=== PATIENT | female | born 1945 | race Caucasian/White ===

== ENCOUNTER 2018-08-06 01:25 | Inpatient (IN) | payer BC, MEDICARE ==
[~2018-08-06] VITALS: Ht 162.6 cm; Wt 69.9 kg
[2018-08-06 01:48] VITALS: BP 146/87
[2018-08-06] MEDS ORDERED: MAG HYDROX/AL HYDROX/SIMETH 30 ML ORAL.SUSP PO PRN (02:15)
[2018-08-06] MEDS ORDERED: MAGNESIUM HYDROXIDE 2,400 MG/30 ML ORAL.SUSP. PO PRN (02:15)
[2018-08-06 06:05] VITALS: BP 123/65
[2018-08-06 06:48] LABS: BASO % 0 % (0-3); EOS # 0.1 x10^3/uL (0.0-0.7); EOS % 3 % (0-3); HEMATOCRIT 41.2 % (36.0-47.0); HEMOGLOBIN 14.1 g/dL (12.0-15.5); LYMPH # 1.4 x10^3/uL (1.0-4.8); LYMPH % 33 % (24-48); MEAN CORPUSCULAR HEMOGLOBIN 33 pg (25-35); MEAN CORPUSCULAR HGB CONC 34 g/dL (31-37); MEAN CORPUSCULAR VOLUME 95 fL (79-100); MONO # 0.4 x10^3/uL (0.0-1.1); MONO % 10 % (0-9); NEUT # 2.3 x10^3uL (1.8-7.7); NEUT % 54 % (31-73); PLATELET COUNT 265 x10^3/uL (140-400); RED BLOOD COUNT 4.32 x10^6/uL (3.50-5.40); RED CELL DISTRIBUTION WIDTH 12.3 % (11.5-14.5); WHITE BLOOD COUNT 4.2 x10^3/uL (4.0-11.0)
[2018-08-06 06:57] LABS: ALBUMIN 3.3 g/dL (3.4-5.0); ALBUMIN/GLOBULIN RATIO 1.1 (1.0-1.7); CALCIUM 9.2 mg/dL (8.5-10.1); CREATININE 0.7 mg/dL (0.6-1.0); GFR 82.7; MAGNESIUM 2.2 mg/dL (1.8-2.4); POTASSIUM 3.6 mmol/L (3.5-5.1); TOTAL BILIRUBIN 0.3 mg/dL (0.2-1.0); TOTAL PROTEIN 6.4 g/dL (6.4-8.2)
[2018-08-06 07:07] LABS: BACTERIA,URINE FEW /HPF (0-FEW); BILIRUBIN,URINE NEG (NEG); CLARITY,URINE CLEAR; COLOR,URINE YELLOW; GLUCOSE,URINE NEG (NEG); NITRITE,URINE NEG (NEG); RBC,URINE 0 /HPF (0-2); SQUAMOUS EPITHELIAL CELL,UR OCC /LPF; UROBILINOGEN,URINE 0.2 mg/dL (0.2 mg/dL); WBC,URINE OCC /HPF (0-4)
[2018-08-06] MEDS ORDERED: CHOL100013 PO (09:45)
[2018-08-06] MEDS ORDERED: ALBUTEROL SULFATE 8GM INHALER. INH PRN (09:45)
[2018-08-06] MEDS ORDERED: ALBU8.5H8 INH (09:45)
[2018-08-06] MEDS ORDERED: ACET325T9 PO (09:45)
[2018-08-06] MEDS ORDERED: CLON0.5T11 PO (09:45)
[2018-08-06] MEDS ORDERED: QUET25TA5 PO (09:45)
[2018-08-06] MEDS ORDERED: MULT-697 PO (09:45)
[2018-08-06] MEDS ORDERED: LISI1TAB5 PO (09:45)
[2018-08-06] MEDS ORDERED: MELA3TAB2 PO (09:45)
[2018-08-06] MEDS: QUEtiapine 25 MG TABLET. PO SCH ×2 (10:00→20:45)
[2018-08-06] MEDS: hydroCHLOROthiazide 12.5 MG CAPSULE PO SCH (10:03)
[2018-08-06] MEDS: LISINOPRIL 20 MG TABLET PO SCH (10:04)
[2018-08-06] MEDS ORDERED: ALBUTEROL SULFATE 2.5 MG/3 ML NEBU. NEB PRN (11:00)
[2018-08-06 12:48] LABS: THYROID STIM HORMONE (TSH) 1.693 uIU/mL (0.358-3.740)
[2018-08-06] MEDS: clonazePAM 0.5 MG TABLET PO PRN (12:50)
--- NOTE | 2018-08-06 17:36 | RAD ---
EXAM: Head CT without contrast. HISTORY: Altered mental status. TECHNIQUE: Computed tomographic images of the head were obtained without contrast. *One or more of the following individualized dose reduction techniques were utilized for this examination: 1. Automated exposure control. 2. Adjustment of the mA and/or kV according to patient size. 3. Use of iterative reconstruction technique. COMPARISON: None. FINDINGS: There is no acute or subacute extra-axial or intraparenchymal hemorrhage. There is no mass effect or midline shift. There is no hydrocephalus. There are areas of decreased attenuation within the cerebral white matter, nonspecific and likely related to chronic small vessel disease. There is cerebral atrophy with compensatory enlargement of the ventricles. There is asymmetric dilatation of the occipital horn of the right lateral ventricle. The visualized portions of the orbits, paranasal sinuses and mastoid air cells are unremarkable. No suspicious calvarial lesion is seen. IMPRESSION: 1. No acute intracranial finding. Note is made that MRI is more sensitive for acute infarction. 2. Subtle areas of hypodensity within the cerebral white matter, likely due to chronic small vessel disease. Electronically signed by: Theresa Solis MD (08/06/2018 5:33 PM) [facility]
[2018-08-06 18:07] LABS: THYROXINE 6.5 ug/dL (4.5-12.0)
[2018-08-06 20:09] LABS: HEMOGLOBIN A1C 5.6 % (4.8-5.6)
[2018-08-06] MEDS: ACETAMINOPHEN 325 MG TABLET PO SCH (20:46)
[2018-08-06] MEDS: MELATONIN 3 MG TABLET PO SCH (20:46)
--- NOTE | 2018-08-06 22:52 | PDOC ---
Exam Note: Miah Note: Late entry for DOS 08/05/2018. Please also refer to the separate dictated note~ for this date of service dictated separately.~Discussed the patient with Nursing staff reviewed the chart.~Reviewed interim history and current functioning. Reviewed vital signs,~Labs/ Radiology~and current medications noted below. Continue current treatment with the changes noted in the dictated addendum note Assessment: Vital Signs: VS - Last 72 Hours, by Label Date Time Temp Pulse Resp B/P (MAP) Pulse Ox O2 Delivery O2 Flow Rate FiO2 08/06/18 10:04 61 123/65 08/06/18 06:05 96.5 61 16 123/65 (84) 99 08/06/18 01:48 97.5 76 18 146/87 (106) 96 Vital Signs Date Time Temp Pulse Resp B/P (MAP) Pulse Ox O2 Delivery O2 Flow Rate FiO2 08/06/18 10:04 61 123/65 08/06/18 06:05 96.5 16 99 Labs: Laboratory Tests Test 08/06/18 06:35 08/06/18 06:46 White Blood Count 4.2 x10^3/uL (4.0-11.0) Red Blood Count 4.32 x10^6/uL (3.50-5.40) Hemoglobin 14.1 g/dL (12.0-15.5) Hematocrit 41.2 % (36.0-47.0) Mean Corpuscular Volume 95 fL (79-100) Mean Corpuscular Hemoglobin 33 pg (25-35) Mean Corpuscular Hemoglobin Concent 34 g/dL (31-37) Red Cell Distribution Width 12.3 % (11.5-14.5) Platelet Count 265 x10^3/uL (140-400) Neutrophils (%) (Auto) 54 % (31-73) Lymphocytes (%) (Auto) 33 % (24-48) Monocytes (%) (Auto) 10 % (0-9) H Eosinophils (%) (Auto) 3 % (0-3) Basophils (%) (Auto) 0 % (0-3) Neutrophils # (Auto) 2.3 x10^3uL (1.8-7.7) Lymphocytes # (Auto) 1.4 x10^3/uL (1.0-4.8) Monocytes # (Auto) 0.4 x10^3/uL (0.0-1.1) Eosinophils # (Auto) 0.1 x10^3/uL (0.0-0.7) Basophils # (Auto) 0.0 x10^3/uL (0.0-0.2) Sodium Level 138 mmol/L (136-145) Potassium Level 3.6 mmol/L (3.5-5.1) Chloride Level 104 mmol/L (98-107) Carbon Dioxide Level 27 mmol/L (21-32) Anion Gap 7 (6-14) Blood Urea Nitrogen 19 mg/dL (7-20) Creatinine 0.7 mg/dL (0.6-1.0) Estimated GFR (Cockcroft-Gault) 82.7 BUN/Creatinine Ratio 27 (6-20) H Glucose Level 99 mg/dL (70-99) Hemoglobin A1c 5.6 % (4.8-5.6) Calcium Level 9.2 mg/dL (8.5-10.1) Magnesium Level 2.2 mg/dL (1.8-2.4) Iron Level 57 ug/dL (50-170) Total Iron Binding Capacity 255 ug/dL (250-450) Iron Saturation 22 % (15-34) Total Bilirubin 0.3 mg/dL (0.2-1.0) Aspartate Amino Transferase (AST) 19 U/L (15-37) Alanine Aminotransferase (ALT) 39 U/L (14-59) Alkaline Phosphatase 73 U/L (46-116) Total Protein 6.4 g/dL (6.4-8.2) Albumin 3.3 g/dL (3.4-5.0) L Albumin/Globulin Ratio 1.1 (1.0-1.7) Triglycerides Level 64 mg/dL (0-150) Cholesterol Level 179 mg/dL (0-200) LDL Cholesterol, Calculated 113 mg/dL (0-100) H VLDL Cholesterol, Calculated 12 mg/dL (0-40) Non-HDL Cholesterol Calculated 125 mg/dL (0-129) HDL Cholesterol 54 mg/dL (40-60) Cholesterol/HDL Ratio 3.0 Vitamin B12 Level 778 pg/mL (247-911) 25-Hydroxy Vitamin D Total 49.2 ng/mL (30-100) Thyroid Stimulating Hormone (TSH) 1.693 uIU/mL (0.358-3.740) Thyroxine (T4) 6.5 ug/dL (4.5-12.0) Total Triiodothyronine (TT3) 115 ng/dL (71-180) Treponema pallidum Antibody Nonreactive (Nonreactive) Urine Collection Type Unknown Urine Color Yellow Urine Clarity Clear Urine pH 6.0 Urine Specific [place] 1.010 Urine Protein Neg (NEG-TRACE) Urine Glucose (UA) Neg mg/dL (NEG) Urine Ketones (Stick) Neg mg/dL (NEG) Urine Blood Neg (NEG) Urine Nitrite Neg (NEG) Urine Bilirubin Neg (NEG) Urine Urobilinogen Dipstick 0.2 mg/dL (0.2 mg/dL) Urine Leukocyte Esterase Neg (NEG) Urine RBC 0 /HPF (0-2) Urine WBC Occ /HPF (0-4) Urine Squamous Epithelial Cells Occ /LPF Urine Bacteria Few /HPF (0-FEW) Current Medications: Meds: Current Medications Acetaminophen (Tylenol) 650 mg PRN Q6HRS PRN PO PAIN / TEMP; Start 08/06/18 at 02:15 Multi-Ingredient Ointment (Analgesic [place]) 1 yessenia PRN QID PRN TP MUSCLE PAIN; Start 08/06/18 at 02:15 Al Hydroxide/Mg Hydroxide (Mylanta Plus Xs) 15 ml PRN AFTMEALHC PRN PO DYSPEPSIA; Start 08/06/18 at 02:15 Magnesium Hydroxide (Milk Of Magnesia) 2,400 mg PRN QHS PRN PO CONSTIPATION; Start 08/06/18 at 02:15 Albuterol Sulfate (Ventolin Hfa Inhaler) 2 puff PRN Q4HRS PRN INH SHORTNESS OF BREATH; Start 08/06/18 at 09:45; Stop 08/06/18 at 11:04; Status DC Clonazepam (KlonoPIN) 0.25 mg PRN DAILY PRN PO ANXIETY Last administered on 08/06/18at 12:50; Start 08/06/18 at 09:45 Vitamin D (Vitamin D3) 1,000 unit DAILY PO ; Start 08/07/18 at 09:00 Lisinopril (Prinivil) 20 mg DAILY PO Last administered on 08/06/18at 10:04; Start 08/06/18 at 10:00 Melatonin 9 mg QHS PO Last administered on 08/06/18at 20:46; Start 08/06/18 at 21:00 Multivitamins/ Calcium (Thera-M Plus) 1 tab DAILY PO ; Start 08/07/18 at 09:00 Quetiapine Fumarate (SEROquel) 25 mg QHS PO Last administered on 08/06/18at 20: 45; Start 08/06/18 at 10:00 Acetaminophen (Tylenol) 500 mg BID PO Last administered on 08/06/18at 20:46; Start 08/06/18 at 21:00 Hydrochlorothiazide (Microzide) 12.5 mg DAILY PO Last administered on at 10:03; Start 08/06/18 at 10:00 Albuterol Sulfate (Ventolin) 2.5 mg PRN Q4HRS PRN NEB SHORTNESS OF BREATH; Start 08/06/18 at 11:00 Olanzapine (ZyPREXA ZYDIS) 2.5 mg PRN Q2HR PRN PO PSYCHOSIS; Start 08/06/18 at 19:30 Active Scripts Active Reported Centrum Adults Tablet (Multivitamin/Iron/Folic Acid) 1 Each Tablet 1 Each PO DAILY Vitamin D (Cholecalciferol (Vitamin D3)) 1,000 Unit Capsule 1,000 Unit PO DAILY Proair Hfa Inhaler (Albuterol Sulfate) 8.5 Gm Hfa.aer.ad 2 Puff INH PRN Q4HRS PRN Tylenol (Acetaminophen) 325 Mg Tablet 500 Mg PO BID Clonazepam 0.5 Mg Tablet 0.25 Mg PO PRN DAILY PRN Melatonin 3 Mg Tablet 10 Mg PO QHS Seroquel (Quetiapine Fumarate) 25 Mg Tablet 25 Mg PO QHS Lisinopril-Hctz 20-12.5 Mg Tab (Lisinopril/Hydrochlorothiazide) 1 Each Tablet 1 Tab PO DAILY I have reviewed the current psychotropics carefully including drug interactions. Risk benefit ratio favors no change other than as noted in my dictated progress note. JERMAINE MELENDEZ MD Aug 06, 2018 22:52
--- NOTE | 2018-08-06 23:20 | PDOC ---
Exam Note: Miah Note: Please also refer to the separate dictated note~for this date of service dictated separately.~Patient seen individually. Discussed the patient with Nursing staff reviewed the chart.~Reviewed interim history and current functioning. Reviewed vital signs,~Labs/ Radiology~and current medications noted below. Continue current treatment with the changes noted in the dictated addendum note Assessment: Vital Signs: Vital Signs Date Time Temp Pulse Resp B/P (MAP) Pulse Ox O2 Delivery O2 Flow Rate FiO2 08/06/18 21:00 96.5 08/06/18 10:04 61 123/65 08/06/18 06:05 16 99 Labs: Laboratory Tests Test 08/06/18 06:35 08/06/18 06:46 White Blood Count 4.2 x10^3/uL (4.0-11.0) Red Blood Count 4.32 x10^6/uL (3.50-5.40) Hemoglobin 14.1 g/dL (12.0-15.5) Hematocrit 41.2 % (36.0-47.0) Mean Corpuscular Volume 95 fL (79-100) Mean Corpuscular Hemoglobin 33 pg (25-35) Mean Corpuscular Hemoglobin Concent 34 g/dL (31-37) Red Cell Distribution Width 12.3 % (11.5-14.5) Platelet Count 265 x10^3/uL (140-400) Neutrophils (%) (Auto) 54 % (31-73) Lymphocytes (%) (Auto) 33 % (24-48) Monocytes (%) (Auto) 10 % (0-9) H Eosinophils (%) (Auto) 3 % (0-3) Basophils (%) (Auto) 0 % (0-3) Neutrophils # (Auto) 2.3 x10^3uL (1.8-7.7) Lymphocytes # (Auto) 1.4 x10^3/uL (1.0-4.8) Monocytes # (Auto) 0.4 x10^3/uL (0.0-1.1) Eosinophils # (Auto) 0.1 x10^3/uL (0.0-0.7) Basophils # (Auto) 0.0 x10^3/uL (0.0-0.2) Sodium Level 138 mmol/L (136-145) Potassium Level 3.6 mmol/L (3.5-5.1) Chloride Level 104 mmol/L (98-107) Carbon Dioxide Level 27 mmol/L (21-32) Anion Gap 7 (6-14) Blood Urea Nitrogen 19 mg/dL (7-20) Creatinine 0.7 mg/dL (0.6-1.0) Estimated GFR (Cockcroft-Gault) 82.7 BUN/Creatinine Ratio 27 (6-20) H Glucose Level 99 mg/dL (70-99) Hemoglobin A1c 5.6 % (4.8-5.6) Calcium Level 9.2 mg/dL (8.5-10.1) Magnesium Level 2.2 mg/dL (1.8-2.4) Iron Level 57 ug/dL (50-170) Total Iron Binding Capacity 255 ug/dL (250-450) Iron Saturation 22 % (15-34) Total Bilirubin 0.3 mg/dL (0.2-1.0) Aspartate Amino Transferase (AST) 19 U/L (15-37) Alanine Aminotransferase (ALT) 39 U/L (14-59) Alkaline Phosphatase 73 U/L (46-116) Total Protein 6.4 g/dL (6.4-8.2) Albumin 3.3 g/dL (3.4-5.0) L Albumin/Globulin Ratio 1.1 (1.0-1.7) Triglycerides Level 64 mg/dL (0-150) Cholesterol Level 179 mg/dL (0-200) LDL Cholesterol, Calculated 113 mg/dL (0-100) H VLDL Cholesterol, Calculated 12 mg/dL (0-40) Non-HDL Cholesterol Calculated 125 mg/dL (0-129) HDL Cholesterol 54 mg/dL (40-60) Cholesterol/HDL Ratio 3.0 Vitamin B12 Level 778 pg/mL (247-911) 25-Hydroxy Vitamin D Total 49.2 ng/mL (30-100) Thyroid Stimulating Hormone (TSH) 1.693 uIU/mL (0.358-3.740) Thyroxine (T4) 6.5 ug/dL (4.5-12.0) Total Triiodothyronine (TT3) 115 ng/dL (71-180) Treponema pallidum Antibody Nonreactive (Nonreactive) Urine Collection Type Unknown Urine Color Yellow Urine Clarity Clear Urine pH 6.0 Urine Specific [place] 1.010 Urine Protein Neg (NEG-TRACE) Urine Glucose (UA) Neg mg/dL (NEG) Urine Ketones (Stick) Neg mg/dL (NEG) Urine Blood Neg (NEG) Urine Nitrite Neg (NEG) Urine Bilirubin Neg (NEG) Urine Urobilinogen Dipstick 0.2 mg/dL (0.2 mg/dL) Urine Leukocyte Esterase Neg (NEG) Urine RBC 0 /HPF (0-2) Urine WBC Occ /HPF (0-4) Urine Squamous Epithelial Cells Occ /LPF Urine Bacteria Few /HPF (0-FEW) Current Medications: Meds: Current Medications Acetaminophen (Tylenol) 650 mg PRN Q6HRS PRN PO PAIN / TEMP; Start 08/06/18 at 02:15 Multi-Ingredient Ointment (Analgesic [place]) 1 yessenia PRN QID PRN TP MUSCLE PAIN; Start 08/06/18 at 02:15 Al Hydroxide/Mg Hydroxide (Mylanta Plus Xs) 15 ml PRN AFTMEALHC PRN PO DYSPEPSIA; Start 08/06/18 at 02:15 Magnesium Hydroxide (Milk Of Magnesia) 2,400 mg PRN QHS PRN PO CONSTIPATION; Start 08/06/18 at 02:15 Albuterol Sulfate (Ventolin Hfa Inhaler) 2 puff PRN Q4HRS PRN INH SHORTNESS OF BREATH; Start 08/06/18 at 09:45; Stop 08/06/18 at 11:04; Status DC Clonazepam (KlonoPIN) 0.25 mg PRN DAILY PRN PO ANXIETY Last administered on 08/06/18at 12:50; Start 08/06/18 at 09:45 Vitamin D (Vitamin D3) 1,000 unit DAILY PO ; Start 08/07/18 at 09:00 Lisinopril (Prinivil) 20 mg DAILY PO Last administered on 08/06/18at 10:04; Start 08/06/18 at 10:00 Melatonin 9 mg QHS PO Last administered on 08/06/18at 20:46; Start 08/06/18 at 21:00 Multivitamins/ Calcium (Thera-M Plus) 1 tab DAILY PO ; Start 08/07/18 at 09:00 Quetiapine Fumarate (SEROquel) 25 mg QHS PO Last administered on 08/06/18at 20: 45; Start 08/06/18 at 10:00 Acetaminophen (Tylenol) 500 mg BID PO Last administered on 08/06/18at 20:46; Start 08/06/18 at 21:00 Hydrochlorothiazide (Microzide) 12.5 mg DAILY PO Last administered on at 10:03; Start 08/06/18 at 10:00 Albuterol Sulfate (Ventolin) 2.5 mg PRN Q4HRS PRN NEB SHORTNESS OF BREATH; Start 08/06/18 at 11:00 Olanzapine (ZyPREXA ZYDIS) 2.5 mg PRN Q2HR PRN PO PSYCHOSIS; Start 08/06/18 at 19:30 Active Scripts Active Reported Centrum Adults Tablet (Multivitamin/Iron/Folic Acid) 1 Each Tablet 1 Each PO DAILY Vitamin D (Cholecalciferol (Vitamin D3)) 1,000 Unit Capsule 1,000 Unit PO DAILY Proair Hfa Inhaler (Albuterol Sulfate) 8.5 Gm Hfa.aer.ad 2 Puff INH PRN Q4HRS PRN Tylenol (Acetaminophen) 325 Mg Tablet 500 Mg PO BID Clonazepam 0.5 Mg Tablet 0.25 Mg PO PRN DAILY PRN Melatonin 3 Mg Tablet 10 Mg PO QHS Seroquel (Quetiapine Fumarate) 25 Mg Tablet 25 Mg PO QHS Lisinopril-Hctz 20-12.5 Mg Tab (Lisinopril/Hydrochlorothiazide) 1 Each Tablet 1 Tab PO DAILY I have reviewed the current psychotropics carefully including drug interactions. Risk benefit ratio favors no change other than as noted in my dictated progress note. JERMAINE MELENDEZ MD Aug 06, 2018 23:20
[2018-08-07 05:59] VITALS: BP 144/84
--- NOTE | 2018-08-07 08:04 | HP ---
ADMIT DATE: 08/06/2018 PSYCHIATRIC ADMISSION HISTORY/EVALUATION This late entry 08/06/2018 covers element, not covered in my initial note. I met with the patient at length in the evening of 08/06/2018. Discussed with nursing staff several times and with Antoinette Martin recreation program coordinator on 2 or 3 separate occasions. IDENTIFYING DATA: The patient is a 72-year-old female referred to us from [facility] Room where she presented with her family on account of "manic behaviors and psychosis." The patient had been labile, tearful, anxious, paranoid, distractible. She has failed outpatient psychiatric interventions with Dr. Moise Gallagher her primary care physician. We also reviewed extensive records approximately 80 pages or perhaps more received from her outpatient providers with a diagnosis from a psychiatric standpoint of anxiety, depression, ADHD, and some memory deficits, even though she is reasonably oriented. CHIEF COMPLAINT: "I have panic attacks. My mind keeps racing. I cannot stay still ____ less moved. Can be sit down." The patient has rapid speech, extremely distractible, anxious, disorganized, but otherwise pleasant. She is quite paranoid. HISTORY OF PRESENT ILLNESS: The patient has a long history of treatment for depression, panic attacks, anxiety, ADHD, but on close review of her history, she appears to have history of mood swings with periods of elation, racing thoughts alternating with getting depressed. She has had sleep and appetite changes. The patient attributes much of her problems to having anesthesia for surgery for her back and states the morphine made her extremely agitated. No active suicidal or homicidal ideation. The patient states she is extremely obsessive, perfectionistic, but then adds that the whole house is very disorganized. PAST PSYCHIATRIC HISTORY: Review of the records indicates she is being treated at different times for all of the above psychiatric disorders, but never specifically for what appears to be bipolar disorder. PAST MEDICAL HISTORY: COPD, chronic venous insufficiency, hypertension, hyponatremia, lumbar stenosis with neurogenic claudication, postmenopausal hormone replacement, OCD, osteoarthritis to left knee, chronic pain, hypercholesterolemia, spinal stenosis, spondylolisthesis, asthma, vitamin D deficiency. DRUG ALLERGIES: Negative other than adverse reaction to MORPHINE. FAMILY HISTORY: Noncontributory. SOCIAL HISTORY: No history of alcohol, drug abuse, physical, sexual, or elder abuse. She is not known to be a perpetrator. REACTION TO HOSPITALIZATION: The patient reluctantly is accepting of this. ASSETS: Supportive family. MENTAL STATUS EXAMINATION: The patient was seen individually at length the evening of 08/06/2018. She is oriented to herself, situation, aware of the date, year, month accurately. She knew who the president was, able to do two steps on serial sevens. Somewhat distractible, hyperverbal, anxious. No active suicidal or homicidal ideation. IMPRESSION: Bipolar 1 disorder, manic versus mixed with psychotic features; anxiety disorder, unspecified; impulse control disorder, unspecified; cognitive disorder, unspecified. Rest diagnoses as noted above. PLAN: Admit to Geropsychiatry Unit at [facility]. I will see the patient daily individually from a psychiatric standpoint, medical followup with Dr. Alcantara/Dr. Marin. CT head has been completed at my request. No acute changes, subtle areas of hypodensity within the cerebral white matter, chronic small vessel disease, otherwise unremarkable. The patient is currently on Klonopin 0.25 mg daily p.r.n., melatonin 9 mg at bedtime, Seroquel 25 mg at bedtime. We will go ahead and add Zyprexa p.r.n. and started on Depakote ER 500 mg a day. Check CBC, CMP, valproic acid level in 3 days. Change the Seroquel to Risperdal 0.25 mg daily. We will make further adjustments as clinically indicated. The patient has had a past neuropsychological testing by Dr. Sullivan which indicated some mild level of Alzheimer's dementia and major depressive disorder. Certainly on review of her entire history, past response to treatment, and from the information I have received at this time it appears she more than likely has a diagnosis of undiagnosed bipolar disorder as noted above. MAN Edward MELENDEZ MD DR: ROSALIE/regan JOB#: [id number] / [id number]
[2018-08-07] MEDS: hydroCHLOROthiazide 12.5 MG CAPSULE PO SCH (08:07)
[2018-08-07] MEDS: LISINOPRIL 20 MG TABLET PO SCH (08:07)
[2018-08-07] MEDS: ACETAMINOPHEN 325 MG TABLET PO SCH ×2 (08:08→19:34)
[2018-08-07] MEDS: CHOLECALCIFEROL (VITAMIN D3) 1,000 UNIT TABLET PO SCH (08:11)
[2018-08-07] MEDS: DIVALPROEX ER 500 MG TAB.ER.24H PO SCH ×2 (08:12→08:13)
[2018-08-07] MEDS: MULTIVITAMIN with MINERAL TABLET. PO SCH (08:12)
[2018-08-07] MEDS ORDERED: risperiDONE 0.25 MG TABLET. PO SCH (09:00)
[2018-08-07] MEDS: METHYL SALICYLATE/MENTHOL TOPICAL OINTMENT 29GM TUBE. TP PRN (14:33)
[2018-08-07 16:03] VITALS: BP 119/82
[2018-08-07] MEDS: MELATONIN 3 MG TABLET PO SCH (19:35)
--- NOTE | 2018-08-07 20:47 | PDOC2 ---
CONSULT Date of Admission DATE: 08/07/18 TIME: 20:46 Reason for Consult: Medical Management Referring Physician: Dr Franco Chief Complaint mood disorder Source: Caregiver, Chart review, Patient History of Present Illness: 72/F referred to [facility] unit for admission by social worker health services at [facility] ED after having been taken there for evaluation by her for psychiatric evaluation. Records indicate patient has been emotionally labile and paranoid, very anxious and obviously manic. Symptoms have been worsening since late June, patient has reportedly undergone neuropsychiatric testing and pharmacologic therapies as outpatient which have been unsuccessful. I evaluated her assisted by [facility] RN, and the patient exhibited very pressured speech with tangential thoughts and hypochondriasis. Patient complains of sore throat described as mild with no associated symptoms since March. Requests lidocaine patch for her chronic back pain. She feels that she's been inactive recently and her joints are stiff, she feels a physical therapy evaluation would benefit her. She wants constant throat lozenges. Many other somatic complaints, none of which involve ESPARZA/fever/CP/SOB/n/v/d/focal neurodeficit. Her vitals have been stable, labs unremarkable aside from slightly subtherapeutic valproic acid level at 45. She is ambulatory with antalgic gait in no apparent distress. Cardiovascular: HTN Psych: Anxiety Musculoskeletal: low back pain (Chronic) Past Surgical History lumbar "back surgeries" Smoke: No ALCOHOL: none Drugs: None Lives: with Family Domestic Violence: Neg Current Medications Current Medications Acetaminophen (Tylenol) 650 mg PRN Q6HRS PRN PO PAIN / TEMP; Start 08/06/18 at 02:15 Multi-Ingredient Ointment (Analgesic [place]) 1 yessenia PRN QID PRN TP MUSCLE PAIN Last administered on 08/07/18at 14:33; Start 08/06/18 at 02:15 Al Hydroxide/Mg Hydroxide (Mylanta Plus Xs) 15 ml PRN AFTMEALHC PRN PO DYSPEPSIA; Start 08/06/18 at 02:15 Magnesium Hydroxide (Milk Of Magnesia) 2,400 mg PRN QHS PRN PO CONSTIPATION; Start 08/06/18 at 02:15 Albuterol Sulfate (Ventolin Hfa Inhaler) 2 puff PRN Q4HRS PRN INH SHORTNESS OF BREATH; Start 08/06/18 at 09:45; Stop 08/06/18 at 11:04; Status DC Clonazepam (KlonoPIN) 0.25 mg PRN DAILY PRN PO ANXIETY Last administered on 12:50; Start 08/06/18 at 09:45 Vitamin D (Vitamin D3) 1,000 unit DAILY PO Last administered on 08/07/18 08:11 ; Start 08/07/18 at 09:00 Lisinopril (Prinivil) 20 mg DAILY PO Last administered on 08/07/18 08:07; Start 08/06/18 at 10:00 Melatonin 9 mg QHS PO Last administered on 08/07/18 19:35; Start 08/06/18 at 21:00 Multivitamins/ Calcium (Thera-M Plus) 1 tab DAILY PO Last administered on 08:12; Start 08/07/18 at 09:00 Quetiapine Fumarate (SEROquel) 25 mg QHS PO Last administered on 08/06/18 20: 45; Start 08/06/18 at 10:00; Stop 08/07/18 at 07:23; Status DC Acetaminophen (Tylenol) 500 mg BID PO Last administered on 08/07/18 19:34; Start 08/06/18 at 21:00 Hydrochlorothiazide (Microzide) 12.5 mg DAILY PO Last administered on 08:07; Start 08/06/18 at 10:00 Albuterol Sulfate (Ventolin) 2.5 mg PRN Q4HRS PRN NEB SHORTNESS OF BREATH; Start 08/06/18 at 11:00 Olanzapine (ZyPREXA ZYDIS) 2.5 mg PRN Q2HR PRN PO PSYCHOSIS Last administered on 08/07/18 02:39; Start 08/06/18 at 19:30 Divalproex Sodium (Depakote Er) 500 mg DAILY PO Last administered on 08/07/18 08:13; Start 08/07/18 at 08:00; Stop 08/07/18 at 19:16; Status DC Risperidone (RisperDAL) 0.25 mg DAILY PO Last administered on 08/07/18 08:11; Start 08/07/18 at 09:00; Stop 08/07/18 at 19:16; Status DC Divalproex Sodium (Depakote Er) 500 mg QHS PO ; Start 08/08/18 at 21:00 Risperidone (RisperDAL) 0.25 mg QHS PO ; Start 08/08/18 at 21:00 Active Scripts Active Reported Centrum Adults Tablet (Multivitamin/Iron/Folic Acid) 1 Each Tablet 1 Each PO DAILY Vitamin D (Cholecalciferol (Vitamin D3)) 1,000 Unit Capsule 1,000 Unit PO DAILY Proair Hfa Inhaler (Albuterol Sulfate) 8.5 Gm Hfa.aer.ad 2 Puff INH PRN Q4HRS PRN Tylenol (Acetaminophen) 325 Mg Tablet 500 Mg PO BID Clonazepam 0.5 Mg Tablet 0.25 Mg PO PRN DAILY PRN Melatonin 3 Mg Tablet 10 Mg PO QHS Seroquel (Quetiapine Fumarate) 25 Mg Tablet 25 Mg PO QHS Lisinopril-Hctz 20-12.5 Mg Tab (Lisinopril/Hydrochlorothiazide) 1 Each Tablet 1 Tab PO DAILY Allergies: Coded Allergies: morphine (Verified Allergy, Intermediate, 08/08/18) Review of Systems: Constitutional: No fever or chills Eyes: No eye pain or blurred vision Skin: No rash or itching Cardiovascular: No chest pain, syncope, palpitations, dyspnea on exertion, or edema Respiratory: No cough or difficulty breathing Gastrointestinal: No nausea, vomiting, or abdominal pain Neurologic: No headaches or focal neurologic deficits Endocrine: No heat or cold intolerance Genitourinary: No incontinence or hematuria Musculoskeletal: No joint pain or swelling Lymphatics: No enlarged lymph nodes Psychiatric: No anxiety or depression Physical Exam: Gen.: Alert, pleasant, no apparent distress HEENT: Normocephalic atraumatic, PERRLA EOMI, no scleral icterus, oral mucosa pink and moist Neck: Supple, no lymphadenopathy, nontender Cardiovascular: Normal S1 and S2 no murmurs Pulmonary: Lungs are clear bilaterally with good air movement no respiratory distress Abdomen: Soft nontender non-distended, bowel sounds present no masses Extremities: No clubbing, cyanosis or edema Neuro: Alert and oriented 3, cranial nerves II through XII grossly intact, no lateralizing neuro deficits Skin: Warm, dry VITALS Vital Signs Date Time Temp Pulse Resp B/P (MAP) Pulse Ox O2 Delivery O2 Flow Rate FiO2 08/07/18 16:03 97.7 83 18 119/82 (94) 100 Room Air Labs Laboratory Tests Test 08/06/18 06:35 08/06/18 06:46 White Blood Count 4.2 x10^3/uL (4.0-11.0) Red Blood Count 4.32 x10^6/uL (3.50-5.40) Hemoglobin 14.1 g/dL (12.0-15.5) Hematocrit 41.2 % (36.0-47.0) Mean Corpuscular Volume 95 fL (79-100) Mean Corpuscular Hemoglobin 33 pg (25-35) Mean Corpuscular Hemoglobin Concent 34 g/dL (31-37) Red Cell Distribution Width 12.3 % (11.5-14.5) Platelet Count 265 x10^3/uL (140-400) Neutrophils (%) (Auto) 54 % (31-73) Lymphocytes (%) (Auto) 33 % (24-48) Monocytes (%) (Auto) 10 % (0-9) Eosinophils (%) (Auto) 3 % (0-3) Basophils (%) (Auto) 0 % (0-3) Neutrophils # (Auto) 2.3 x10^3uL (1.8-7.7) Lymphocytes # (Auto) 1.4 x10^3/uL (1.0-4.8) Monocytes # (Auto) 0.4 x10^3/uL (0.0-1.1) Eosinophils # (Auto) 0.1 x10^3/uL (0.0-0.7) Basophils # (Auto) 0.0 x10^3/uL (0.0-0.2) Sodium Level 138 mmol/L (136-145) Potassium Level 3.6 mmol/L (3.5-5.1) Chloride Level 104 mmol/L (98-107) Carbon Dioxide Level 27 mmol/L (21-32) Anion Gap 7 (6-14) Blood Urea Nitrogen 19 mg/dL (7-20) Creatinine 0.7 mg/dL (0.6-1.0) Estimated GFR (Cockcroft-Gault) 82.7 BUN/Creatinine Ratio 27 (6-20) Glucose Level 99 mg/dL (70-99) Hemoglobin A1c 5.6 % (4.8-5.6) Calcium Level 9.2 mg/dL (8.5-10.1) Magnesium Level 2.2 mg/dL (1.8-2.4) Iron Level 57 ug/dL (50-170) Total Iron Binding Capacity 255 ug/dL (250-450) Iron Saturation 22 % (15-34) Total Bilirubin 0.3 mg/dL (0.2-1.0) Aspartate Amino Transf (AST/SGOT) 19 U/L (15-37) Alanine Aminotransferase (ALT/SGPT) 39 U/L (14-59) Alkaline Phosphatase 73 U/L (46-116) Total Protein 6.4 g/dL (6.4-8.2) Albumin 3.3 g/dL (3.4-5.0) Albumin/Globulin Ratio 1.1 (1.0-1.7) Triglycerides Level 64 mg/dL (0-150) Cholesterol Level 179 mg/dL (0-200) LDL Cholesterol, Calculated 113 mg/dL (0-100) VLDL Cholesterol, Calculated 12 mg/dL (0-40) Non-HDL Cholesterol Calculated 125 mg/dL (0-129) HDL Cholesterol 54 mg/dL (40-60) Cholesterol/HDL Ratio 3.0 Vitamin B12 Level 778 pg/mL (247-911) 25-Hydroxy Vitamin D Total 49.2 ng/mL (30-100) Thyroid Stimulating Hormone (TSH) 1.693 uIU/mL (0.358-3.740) Thyroxine (T4) 6.5 ug/dL (4.5-12.0) Total Triiodothyronine 115 ng/dL (71-180) Treponema pallidum Antibody Nonreactive (Nonreactive) Urine Collection Type Unknown Urine Color Yellow Urine Clarity Clear Urine pH 6.0 Urine Specific [place] 1.010 Urine Protein Neg (NEG-TRACE) Urine Glucose (UA) Neg mg/dL (NEG) Urine Ketones (Stick) Neg mg/dL (NEG) Urine Blood Neg (NEG) Urine Nitrite Neg (NEG) Urine Bilirubin Neg (NEG) Urine Urobilinogen Dipstick 0.2 mg/dL (0.2 mg/dL) Urine Leukocyte Esterase Neg (NEG) Urine RBC 0 /HPF (0-2) Urine WBC Occ /HPF (0-4) Urine Squamous Epithelial Cells Occ /LPF Urine Bacteria Few /HPF (0-FEW) Assessment/Plan This is a 72/F patient referred for H admission from social worker health services at [facility] ED for worsening moods and behaviors very concerning to her spouse. Based upon available vitals and labs, she is currently medically stable. Due to her complaints will check rapid strep test and offer PT evaluation. As lidocaine patches have provided relief for her in the past will order for symptomatic relief. We will continue to follow and offer treatments as indicated. Thank you, Dr Franco, for allowing me to participate in your patient's care. HAO PATEL DO Aug 07, 2018 20:47
[2018-08-07] MEDS: PATCH REMOVAL. MC SCH (21:00)
[2018-08-07] MEDS ORDERED: GLYCERIN ADULT 1 SUPP.RECT. PR PRN (21:15)
[2018-08-07] MEDS ORDERED: POLYETHYLENE GLYCOL 3350 17 GM PACKET. PO PRN (21:15)
[2018-08-08] MEDS: clonazePAM 0.5 MG TABLET PO PRN (01:03)
[2018-08-08 06:22] VITALS: BP 130/78
[2018-08-08] MEDS: MULTIVITAMIN with MINERAL TABLET. PO SCH (08:37)
[2018-08-08] MEDS: CHOLECALCIFEROL (VITAMIN D3) 1,000 UNIT TABLET PO SCH (08:37)
[2018-08-08] MEDS: hydroCHLOROthiazide 12.5 MG CAPSULE PO SCH (08:37)
[2018-08-08] MEDS: ACETAMINOPHEN 325 MG TABLET PO SCH ×2 (08:37→19:37)
[2018-08-08] MEDS: LISINOPRIL 20 MG TABLET PO SCH (08:37)
[2018-08-08] MEDS: LIDOCAINE (700MG/PATCH) PATCH. TD SCH (08:41)
[2018-08-08 16:03] VITALS: BP 125/92
[2018-08-08] MEDS ORDERED: traZODone 50 MG TABLET. PO PRN (16:45)
[2018-08-08] MEDS: DIVALPROEX ER 500 MG TAB.ER.24H PO SCH ×2 (19:08→19:38)
[2018-08-08] MEDS: risperiDONE 0.5 MG TABLET. PO SCH ×2 (19:08→19:38)
[2018-08-08] MEDS: DOCUSATE SODIUM 100 MG CAPSULE PO SCH ×2 (19:10→19:38)
[2018-08-08] MEDS: PATCH REMOVAL. MC SCH (19:36)
[2018-08-08] MEDS: MELATONIN 3 MG TABLET PO SCH (19:37)
[2018-08-08] MEDS: traZODone 50 MG TABLET. PO SCH (19:39)
--- NOTE | 2018-08-08 19:52 | PDOC ---
Exam Note: Miah Note: Late entry for date of service August 07, 2018. Please also refer to the separate dictated note~for this date of service dictated separately.~Patient seen individually. Discussed the patient with Nursing staff reviewed the chart.~ Reviewed interim history and current functioning. Reviewed vital signs,~Labs/ Radiology~and current medications noted below. Continue current treatment with the changes noted in the dictated addendum note Assessment: Vital Signs: VS - Last 72 Hours, by Label Date Time Temp Pulse Resp B/P (MAP) Pulse Ox O2 Delivery O2 Flow Rate FiO2 08/08/18 16:03 97.5 90 22 125/92 (103) 99 Room Air 08/08/18 08:37 81 130/78 08/08/18 06:22 97.9 81 18 130/78 (95) 98 Room Air 08/07/18 16:03 97.7 83 18 119/82 (94) 100 Room Air 08/07/18 08:07 80 144/84 08/07/18 05:59 97.8 80 22 144/84 (104) 100 08/06/18 21:00 96.5 08/06/18 10:04 61 123/65 08/06/18 06:05 96.5 61 16 123/65 (84) 99 08/06/18 01:48 97.5 76 18 146/87 (106) 96 Vital Signs Date Time Temp Pulse Resp B/P (MAP) Pulse Ox O2 Delivery O2 Flow Rate FiO2 08/08/18 16:03 97.5 90 22 125/92 (103) 99 Room Air I&O Intake and Output 08/08/18 07:00 Intake Total 720 ml Balance 720 ml Intake Oral 720 ml # Voids 1 Labs: Laboratory Tests Test 08/08/18 01:01 Group A Streptococcus Rapid Negative (NEGATIVE) Current Medications: Meds: Current Medications Acetaminophen (Tylenol) 650 mg PRN Q6HRS PRN PO PAIN / TEMP; Start 08/06/18 at 02:15 Multi-Ingredient Ointment (Analgesic [place]) 1 yessenia PRN QID PRN TP MUSCLE PAIN Last administered on 08/07/18at 14:33; Start 08/06/18 at 02:15 Al Hydroxide/Mg Hydroxide (Mylanta Plus Xs) 15 ml PRN AFTMEALHC PRN PO DYSPEPSIA; Start 08/06/18 at 02:15 Magnesium Hydroxide (Milk Of Magnesia) 2,400 mg PRN QHS PRN PO CONSTIPATION; Start 08/06/18 at 02:15 Albuterol Sulfate (Ventolin Hfa Inhaler) 2 puff PRN Q4HRS PRN INH SHORTNESS OF BREATH; Start 08/06/18 at 09:45; Stop 08/06/18 at 11:04; Status DC Clonazepam (KlonoPIN) 0.25 mg PRN DAILY PRN PO ANXIETY Last administered on 01:03; Start 08/06/18 at 09:45 Vitamin D (Vitamin D3) 1,000 unit DAILY PO Last administered on 08/08/18 08:37 ; Start 08/07/18 at 09:00 Lisinopril (Prinivil) 20 mg DAILY PO Last administered on 08/08/18 08:37; Start 08/06/18 at 10:00 Melatonin 9 mg QHS PO Last administered on 08/08/18 19:37; Start 08/06/18 at 21:00 Multivitamins/ Calcium (Thera-M Plus) 1 tab DAILY PO Last administered on 08:37; Start 08/07/18 at 09:00 Quetiapine Fumarate (SEROquel) 25 mg QHS PO Last administered on 08/06/18 20: 45; Start 08/06/18 at 10:00; Stop 08/07/18 at 07:23; Status DC Acetaminophen (Tylenol) 500 mg BID PO Last administered on 08/08/18 19:37; Start 08/06/18 at 21:00 Hydrochlorothiazide (Microzide) 12.5 mg DAILY PO Last administered on 08:37; Start 08/06/18 at 10:00 Albuterol Sulfate (Ventolin) 2.5 mg PRN Q4HRS PRN NEB SHORTNESS OF BREATH; Start 08/06/18 at 11:00 Olanzapine (ZyPREXA ZYDIS) 2.5 mg PRN Q2HR PRN PO PSYCHOSIS Last administered on 08/08/18 08:40; Start 08/06/18 at 19:30 Divalproex Sodium (Depakote Er) 500 mg DAILY PO Last administered on 08/07/18 08:13; Start 08/07/18 at 08:00; Stop 08/07/18 at 19:16; Status DC Risperidone (RisperDAL) 0.25 mg DAILY PO Last administered on 08/07/18at 08:11; Start 08/07/18 at 09:00; Stop 08/07/18 at 19:16; Status DC Divalproex Sodium (Depakote Er) 500 mg QHS PO Last administered on 08/08/18 19 :08; Start 08/08/18 at 18:45 Risperidone (RisperDAL) 0.25 mg QHS PO ; Start 08/08/18 at 21:00; Stop 08/08/18 at 21:00; Status DC Polyethylene Glycol (miraLAX) 17 gm PRN DAILY PRN PO CONSTIPATION; Start at 21:15 Glycerin (Sani-Supp Adult) 1 supp PRN DAILY PRN [place] constipation; Start at 21:15 Lidocaine (Lidoderm) 1 patch DAILY TD Last administered on 08/08/18at 08:41; Start 08/08/18 at 09:00 Miscellaneous (Lidoderm Patch Removal) 1 ea QHS MC Last administered on at 19:36; Start 08/07/18 at 21:00 Risperidone (RisperDAL) 0.5 mg QHS PO Last administered on 08/08/18 19:08; Start 08/08/18 at 18:45 Trazodone HCl (Desyrel) 50 mg QHS PO Last administered on 08/08/18at 19:39; Start 08/08/18 at 21:00 Trazodone HCl (Desyrel) 50 mg PRN QHS PRN PO INSOMNIA; Start 08/08/18 at 16:45 Docusate Sodium (Colace) 100 mg BID PO Last administered on 08/08/18 19:10; Start 08/08/18 at 18:45 Active Scripts Active Reported Centrum Adults Tablet (Multivitamin/Iron/Folic Acid) 1 Each Tablet 1 Each PO DAILY Vitamin D (Cholecalciferol (Vitamin D3)) 1,000 Unit Capsule 1,000 Unit PO DAILY Proair Hfa Inhaler (Albuterol Sulfate) 8.5 Gm Hfa.aer.ad 2 Puff INH PRN Q4HRS PRN Tylenol (Acetaminophen) 325 Mg Tablet 500 Mg PO BID Clonazepam 0.5 Mg Tablet 0.25 Mg PO PRN DAILY PRN Melatonin 3 Mg Tablet 10 Mg PO QHS Seroquel (Quetiapine Fumarate) 25 Mg Tablet 25 Mg PO QHS Lisinopril-Hctz 20-12.5 Mg Tab (Lisinopril/Hydrochlorothiazide) 1 Each Tablet 1 Tab PO DAILY I have reviewed the current psychotropics carefully including drug interactions. Risk benefit ratio favors no change other than as noted in my dictated progress note. Diagnosis: Problems: (1) Anxiety disorder (2) Bipolar affective, mixed, sev w/ psych (3) Impulse control disorder JERMAINE MELENDEZ MD Aug 08, 2018 19:52
[2018-08-08] MEDS ORDERED: risperiDONE 0.25 MG TABLET. PO SCH (21:00)
--- NOTE | 2018-08-08 22:57 | PDOC ---
Exam Note: Miah Note: Please also refer to the separate dictated note~for this date of service dictated separately.~Patient seen individually. Discussed the patient with Nursing staff reviewed the chart.~Reviewed interim history and current functioning. Reviewed vital signs,~Labs/ Radiology~and current medications noted below. Continue current treatment with the changes noted in the dictated addendum note Assessment: Vital Signs: Vital Signs Date Time Temp Pulse Resp B/P (MAP) Pulse Ox O2 Delivery O2 Flow Rate FiO2 08/08/18 16:03 97.5 90 22 125/92 (103) 99 Room Air I&O Intake and Output 08/08/18 07:00 Intake Total 720 ml Balance 720 ml Intake Oral 720 ml # Voids 1 Labs: Laboratory Tests Test 08/08/18 01:01 Group A Streptococcus Rapid Negative (NEGATIVE) Current Medications: Meds: Current Medications Acetaminophen (Tylenol) 650 mg PRN Q6HRS PRN PO PAIN / TEMP; Start 08/06/18 at 02:15 Multi-Ingredient Ointment (Analgesic [place]) 1 yessenia PRN QID PRN TP MUSCLE PAIN Last administered on 08/07/18at 14:33; Start 08/06/18 at 02:15 Al Hydroxide/Mg Hydroxide (Mylanta Plus Xs) 15 ml PRN AFTMEALHC PRN PO DYSPEPSIA; Start 08/06/18 at 02:15 Magnesium Hydroxide (Milk Of Magnesia) 2,400 mg PRN QHS PRN PO CONSTIPATION; Start 08/06/18 at 02:15 Albuterol Sulfate (Ventolin Hfa Inhaler) 2 puff PRN Q4HRS PRN INH SHORTNESS OF BREATH; Start 08/06/18 at 09:45; Stop 08/06/18 at 11:04; Status DC Clonazepam (KlonoPIN) 0.25 mg PRN DAILY PRN PO ANXIETY Last administered on 08/08/18at 01:03; Start 08/06/18 at 09:45 Vitamin D (Vitamin D3) 1,000 unit DAILY PO Last administered on 08/08/18at 08:37 ; Start 08/07/18 at 09:00 Lisinopril (Prinivil) 20 mg DAILY PO Last administered on 08/08/18at 08:37; Start 08/06/18 at 10:00 Melatonin 9 mg QHS PO Last administered on 08/08/18 19:37; Start 08/06/18 at 21:00 Multivitamins/ Calcium (Thera-M Plus) 1 tab DAILY PO Last administered on 08:37; Start 08/07/18 at 09:00 Quetiapine Fumarate (SEROquel) 25 mg QHS PO Last administered on 08/06/18at 20: 45; Start 08/06/18 at 10:00; Stop 08/07/18 at 07:23; Status DC Acetaminophen (Tylenol) 500 mg BID PO Last administered on 08/08/18 19:37; Start 08/06/18 at 21:00 Hydrochlorothiazide (Microzide) 12.5 mg DAILY PO Last administered on 08:37; Start 08/06/18 at 10:00 Albuterol Sulfate (Ventolin) 2.5 mg PRN Q4HRS PRN NEB SHORTNESS OF BREATH; Start 08/06/18 at 11:00 Olanzapine (ZyPREXA ZYDIS) 2.5 mg PRN Q2HR PRN PO PSYCHOSIS Last administered on 08/08/18at 08:40; Start 08/06/18 at 19:30 Divalproex Sodium (Depakote Er) 500 mg DAILY PO Last administered on 08/07/18 08:13; Start 08/07/18 at 08:00; Stop 08/07/18 at 19:16; Status DC Risperidone (RisperDAL) 0.25 mg DAILY PO Last administered on 08/07/18at 08:11; Start 08/07/18 at 09:00; Stop 08/07/18 at 19:16; Status DC Divalproex Sodium (Depakote Er) 500 mg QHS PO Last administered on 08/08/18 19 :08; Start 08/08/18 at 18:45 Risperidone (RisperDAL) 0.25 mg QHS PO ; Start 08/08/18 at 21:00; Stop 08/08/18 at 21:00; Status DC Polyethylene Glycol (miraLAX) 17 gm PRN DAILY PRN PO CONSTIPATION; Start at 21:15 Glycerin (Sani-Supp Adult) 1 supp PRN DAILY PRN [place] constipation; Start at 21:15 Lidocaine (Lidoderm) 1 patch DAILY TD Last administered on 08/08/18 08:41; Start 08/08/18 at 09:00 Miscellaneous (Lidoderm Patch Removal) 1 ea QHS MC Last administered on 19:36; Start 08/07/18 at 21:00 Risperidone (RisperDAL) 0.5 mg QHS PO Last administered on 08/08/18 19:08; Start 08/08/18 at 18:45 Trazodone HCl (Desyrel) 50 mg QHS PO Last administered on 08/08/18 19:39; Start 08/08/18 at 21:00 Trazodone HCl (Desyrel) 50 mg PRN QHS PRN PO INSOMNIA; Start 08/08/18 at 16:45 Docusate Sodium (Colace) 100 mg BID PO Last administered on 08/08/18 19:10; Start 08/08/18 at 18:45 Active Scripts Active Reported Centrum Adults Tablet (Multivitamin/Iron/Folic Acid) 1 Each Tablet 1 Each PO DAILY Vitamin D (Cholecalciferol (Vitamin D3)) 1,000 Unit Capsule 1,000 Unit PO DAILY Proair Hfa Inhaler (Albuterol Sulfate) 8.5 Gm Hfa.aer.ad 2 Puff INH PRN Q4HRS PRN Tylenol (Acetaminophen) 325 Mg Tablet 500 Mg PO BID Clonazepam 0.5 Mg Tablet 0.25 Mg PO PRN DAILY PRN Melatonin 3 Mg Tablet 10 Mg PO QHS Seroquel (Quetiapine Fumarate) 25 Mg Tablet 25 Mg PO QHS Lisinopril-Hctz 20-12.5 Mg Tab (Lisinopril/Hydrochlorothiazide) 1 Each Tablet 1 Tab PO DAILY I have reviewed the current psychotropics carefully including drug interactions. Risk benefit ratio favors no change other than as noted in my dictated progress note. Diagnosis: Problems: (1) Anxiety disorder (2) Bipolar affective, mixed, sev w/ psych (3) Impulse control disorder JERMAINE MELENDEZ MD Aug 08, 2018 22:57
[2018-08-09 05:59] VITALS: BP 121/71
[2018-08-09] MEDS: DOCUSATE SODIUM 100 MG CAPSULE PO SCH ×2 (09:48→19:18)
[2018-08-09] MEDS: hydroCHLOROthiazide 12.5 MG CAPSULE PO SCH (09:48)
[2018-08-09] MEDS: LISINOPRIL 20 MG TABLET PO SCH (09:49)
[2018-08-09] MEDS: MULTIVITAMIN with MINERAL TABLET. PO SCH (09:49)
[2018-08-09] MEDS: ACETAMINOPHEN 325 MG TABLET PO SCH ×2 (09:50→19:19)
[2018-08-09] MEDS: CHOLECALCIFEROL (VITAMIN D3) 1,000 UNIT TABLET PO SCH (09:50)
[2018-08-09] MEDS: LIDOCAINE (700MG/PATCH) PATCH. TD SCH (09:51)
--- NOTE | 2018-08-09 12:35 | PN ---
DATE: 08/07/2018 This late entry, 08/07/2018, covers elements not covered in my initial note. SUBJECTIVE: I met with the patient in the evening and the patient was staffed at treatment team meeting with the entire team in the morning. We tried to connect the patient's for the treatment team meeting as well, but he was unavailable. Reviewed her history at length and I have reviewed about 100 pages of records from her primary care physician neuropsychological testing from Dr. Sullivan, all of which reflects depressive symptoms, anxiety symptoms and disorders. On a careful review of the entire history and her current presentation of manic, hyperverbal state and periods of mood swings with elation, racing thoughts alternating with depression, all of which is reflective of a diagnosis of bipolar [address] head does show white matter disease, which is chronic. No acute changes. REVIEW OF SYSTEMS: No CV, , pulmonary, eye, ENT system symptoms on review. Reliability varies. MENTAL STATUS EXAM: The patient is reasonably oriented. Speech coherent, rapid. She is writing things vociferously on paper wanting me to answer minute details about her medications, which I have done repeatedly at great length with her, but she keeps coming back to it, somewhat obsessive. Abstraction fair. Computation, she is distractable, able to do 2-step serial 7's. No active suicidal or homicidal ideation. Mood and affect remains labile. LABORATORY DATA: Reviewed. IMPRESSION: Bipolar 1 disorder, mixed with psychotic features; anxiety disorder, unspecified; mild cognitive impairment. PLAN: We had initiated Depakote ER 500 mg in the morning, Risperdal 0.25 mg in the morning, but we will go ahead and change this to Depakote ER 500 mg p.o. at bedtime and Risperdal 0.25 mg p.o. at bedtime, increasing to 0.5 mg p.o. at bedtime on account of her ongoing psychotic symptoms. Have had a prior authorization call for inpatient hospitalizations with Dr. Patel, [employer] reviewer and they indicate the patient does not meet inpatient criteria set out by them, but rather for intensive outpatient. I have discussed this with Antoinette Martin, primary care coordinator and she has discussed this with the family. The family wanting to continue inpatient stabilization and will work things out with the insurance themselves and then setting up outpatient with Psychiatry followup post-discharge. I have had a lengthy discussion with nursing staff as well during all of this. We will be checking labs level on the Depakote in 3 days. JERMAINE MELENDEZ MD DR: ROSALIE/regan JOB#: [id number] / [id number]
[2018-08-09] MEDS: clonazePAM 0.5 MG TABLET PO PRN (14:05)
[2018-08-09 16:03] VITALS: BP 146/91
[2018-08-09] MEDS: PATCH REMOVAL. MC SCH (19:17)
[2018-08-09] MEDS: traZODone 50 MG TABLET. PO SCH (19:18)
[2018-08-09] MEDS: DIVALPROEX ER 500 MG TAB.ER.24H PO SCH (19:18)
[2018-08-09] MEDS: risperiDONE 0.5 MG TABLET. PO SCH (19:18)
[2018-08-09] MEDS: MELATONIN 3 MG TABLET PO SCH (19:18)
[2018-08-09] MEDS: BENZOCAINE/MENTHOL LOZNGE 18'S BOX. PO PRN (21:45)
--- NOTE | 2018-08-09 22:57 | PDOC ---
Exam Note: Miah Note: Please also refer to the separate dictated note~for this date of service dictated separately.~Patient seen individually. Discussed the patient with Nursing staff reviewed the chart.~Reviewed interim history and current functioning. Reviewed vital signs,~Labs/ Radiology~and current medications noted below. Continue current treatment with the changes noted in the dictated addendum note Assessment: Vital Signs: Vital Signs Date Time Temp Pulse Resp B/P (MAP) Pulse Ox O2 Delivery O2 Flow Rate FiO2 08/09/18 16:03 97.7 88 20 146/91 (109) 100 Room Air I&O Intake and Output 08/09/18 07:00 Intake Total 840 ml Balance 840 ml Intake Oral 840 ml Current Medications: Meds: Current Medications Acetaminophen (Tylenol) 650 mg PRN Q6HRS PRN PO PAIN / TEMP; Start 08/06/18 at 02:15 Multi-Ingredient Ointment (Analgesic [place]) 1 yessenia PRN QID PRN TP MUSCLE PAIN Last administered on 08/07/18at 14:33; Start 08/06/18 at 02:15 Al Hydroxide/Mg Hydroxide (Mylanta Plus Xs) 15 ml PRN AFTMEALHC PRN PO DYSPEPSIA; Start 08/06/18 at 02:15 Magnesium Hydroxide (Milk Of Magnesia) 2,400 mg PRN QHS PRN PO CONSTIPATION; Start 08/06/18 at 02:15 Albuterol Sulfate (Ventolin Hfa Inhaler) 2 puff PRN Q4HRS PRN INH SHORTNESS OF BREATH; Start 08/06/18 at 09:45; Stop 08/06/18 at 11:04; Status DC Clonazepam (KlonoPIN) 0.25 mg PRN DAILY PRN PO ANXIETY Last administered on 07/17at 14:05; Start 08/06/18 at 09:45 Vitamin D (Vitamin D3) 1,000 unit DAILY PO Last administered on 08/09/18at 09: 50; Start 08/07/18 at 09:00 Lisinopril (Prinivil) 20 mg DAILY PO Last administered on 08/09/18at 09:49; Start 08/06/18 at 10:00 Melatonin 9 mg QHS PO Last administered on 08/09/18at 19:18; Start 08/06/18 at 21:00 Multivitamins/ Calcium (Thera-M Plus) 1 tab DAILY PO Last administered on 08/09 09:49; Start 08/07/18 at 09:00 Quetiapine Fumarate (SEROquel) 25 mg QHS PO Last administered on 08/06/18at 20: 45; Start 08/06/18 at 10:00; Stop 08/07/18 at 07:23; Status DC Acetaminophen (Tylenol) 500 mg BID PO Last administered on 08/09/18at 19:19; Start 08/06/18 at 21:00 Hydrochlorothiazide (Microzide) 12.5 mg DAILY PO Last administered on 09:48; Start 08/06/18 at 10:00 Albuterol Sulfate (Ventolin) 2.5 mg PRN Q4HRS PRN NEB SHORTNESS OF BREATH; Start 08/06/18 at 11:00 Olanzapine (ZyPREXA ZYDIS) 2.5 mg PRN Q2HR PRN PO PSYCHOSIS Last administered on 08/09/18at 15:42; Start 08/06/18 at 19:30 Divalproex Sodium (Depakote Er) 500 mg DAILY PO Last administered on 08/07/18at 08:13; Start 08/07/18 at 08:00; Stop 08/07/18 at 19:16; Status DC Risperidone (RisperDAL) 0.25 mg DAILY PO Last administered on 08/07/18at 08:11; Start 08/07/18 at 09:00; Stop 08/07/18 at 19:16; Status DC Divalproex Sodium (Depakote Er) 500 mg QHS PO Last administered on 08/09/18at 19:18; Start 08/08/18 at 18:45 Risperidone (RisperDAL) 0.25 mg QHS PO ; Start 08/08/18 at 21:00; Stop 08/08/18 at 21:00; Status DC Polyethylene Glycol (miraLAX) 17 gm PRN DAILY PRN PO CONSTIPATION; Start at 21:15 Glycerin (Sani-Supp Adult) 1 supp PRN DAILY PRN IN constipation; Start at 21:15 Lidocaine (Lidoderm) 1 patch DAILY TD Last administered on 08/09/18at 09:51; Start 08/08/18 at 09:00 Miscellaneous (Lidoderm Patch Removal) 1 ea QHS MC Last administered on 19:17; Start 08/07/18 at 21:00 Risperidone (RisperDAL) 0.5 mg QHS PO Last administered on 08/09/18 19:18; Start 08/08/18 at 18:45 Trazodone HCl (Desyrel) 50 mg QHS PO Last administered on 08/09/18 19:18; Start 08/08/18 at 21:00 Trazodone HCl (Desyrel) 50 mg PRN QHS PRN PO INSOMNIA Last administered on 21:45; Start 08/08/18 at 16:45 Docusate Sodium (Colace) 100 mg BID PO Last administered on 08/09/18 19:18; Start 08/08/18 at 18:45 Throat Lozenges (Cepacol Sore Throat Lozenge) 1 doretha PRN Q2HR PRN PO SORE THROAT Last administered on 08/09/18 21:45; Start 08/09/18 at 17:45 Active Scripts Active Reported Centrum Adults Tablet (Multivitamin/Iron/Folic Acid) 1 Each Tablet 1 Each PO DAILY Vitamin D (Cholecalciferol (Vitamin D3)) 1,000 Unit Capsule 1,000 Unit PO DAILY Proair Hfa Inhaler (Albuterol Sulfate) 8.5 Gm Hfa.aer.ad 2 Puff INH PRN Q4HRS PRN Tylenol (Acetaminophen) 325 Mg Tablet 500 Mg PO BID Clonazepam 0.5 Mg Tablet 0.25 Mg PO PRN DAILY PRN Melatonin 3 Mg Tablet 10 Mg PO QHS Seroquel (Quetiapine Fumarate) 25 Mg Tablet 25 Mg PO QHS Lisinopril-Hctz 20-12.5 Mg Tab (Lisinopril/Hydrochlorothiazide) 1 Each Tablet 1 Tab PO DAILY I have reviewed the current psychotropics carefully including drug interactions. Risk benefit ratio favors no change other than as noted in my dictated progress note. Diagnosis: Problems: (1) Anxiety disorder (2) Bipolar affective, mixed, sev w/ psych (3) Impulse control disorder JERMAINE MELENDEZ MD Aug 09, 2018 22:57
[2018-08-10] MEDS: BENZOCAINE/MENTHOL LOZNGE 18'S BOX. PO PRN ×2 (04:54→22:08)
[2018-08-10] MEDS: ACETAMINOPHEN 325 MG TABLET PO PRN ×2 (04:54→16:16)
[2018-08-10 07:10] VITALS: BP 137/83
[2018-08-10] MEDS: DOCUSATE SODIUM 100 MG CAPSULE PO SCH ×2 (09:41→20:50)
[2018-08-10] MEDS: LISINOPRIL 20 MG TABLET PO SCH (09:42)
[2018-08-10] MEDS: ACETAMINOPHEN 325 MG TABLET PO SCH ×2 (09:42→20:50)
[2018-08-10] MEDS: hydroCHLOROthiazide 12.5 MG CAPSULE PO SCH (09:42)
[2018-08-10] MEDS: MULTIVITAMIN with MINERAL TABLET. PO SCH (09:42)
[2018-08-10] MEDS: CHOLECALCIFEROL (VITAMIN D3) 1,000 UNIT TABLET PO SCH (09:43)
[2018-08-10] MEDS: LIDOCAINE (700MG/PATCH) PATCH. TD SCH (09:43)
[2018-08-10 10:54] LABS: ALBUMIN 3.2 g/dL (3.4-5.0); ALBUMIN/GLOBULIN RATIO 0.9 (1.0-1.7); TOTAL BILIRUBIN 0.4 mg/dL (0.2-1.0); TOTAL PROTEIN 6.8 g/dL (6.4-8.2)
[2018-08-10 10:57] LABS: VAL ACID 45 mcg/mL (50-100)
[2018-08-10 11:05] LABS: CREATININE 0.6 mg/dL (0.6-1.0); GFR 98.8
[2018-08-10 11:06] LABS: BASO % 0 % (0-3); EOS # 0.1 x10^3/uL (0.0-0.7); EOS % 2 % (0-3); HEMATOCRIT 42.6 % (36.0-47.0); HEMOGLOBIN 14.2 g/dL (12.0-15.5); LYMPH # 0.9 x10^3/uL (1.0-4.8); LYMPH % 15 % (24-48); MEAN CORPUSCULAR HEMOGLOBIN 32 pg (25-35); MEAN CORPUSCULAR HGB CONC 33 g/dL (31-37); MEAN CORPUSCULAR VOLUME 96 fL (79-100); MONO # 0.5 x10^3/uL (0.0-1.1); MONO % 9 % (0-9); NEUT # 4.4 x10^3uL (1.8-7.7); NEUT % 74 % (31-73); PLATELET COUNT 233 x10^3/uL (140-400); RED BLOOD COUNT 4.43 x10^6/uL (3.50-5.40); RED CELL DISTRIBUTION WIDTH 12.2 % (11.5-14.5); WHITE BLOOD COUNT 5.9 x10^3/uL (4.0-11.0)
--- NOTE | 2018-08-10 12:23 | PN ---
DATE: 08/08/2018 PSYCHIATRIC PROGRESS NOTE This is a late entry 08/08/2018 covers elements not covered in my initial note. SUBJECTIVE: I met with the patient in the evening. The patient slept 4-1/2 hours previous night. She has appeared somewhat manic, hyperverbal per nursing report. The patient was extremely obsessive, making multiple notes wanting me to explain her medications repeatedly which I did, extremely rapid thinking persists. Paranoia is present, but showing some improvement. Slept 4-1/2 hours previous evening. REVIEW OF SYSTEMS: No CV, , pulmonary, eye, ENT system symptoms on review. MENTAL STATUS EXAM: Reasonably oriented. Speech coherent, rapid. Abstraction fair, computation impaired, language function intact, attention span short. Mood and affect remain somewhat labile, manic. LABORATORY DATA: Reviewed. IMPRESSION: Bipolar 1 disorder, mixed with psychotic features; anxiety disorder, unspecified; obsessive compulsive disorder symptoms. PLAN: Continue Depakote ER 500 mg at bedtime. Risperdal changed to 0.25 mg at bedtime, may need to increase this and in fact we will go ahead and increase it to 0.5 mg at bedtime. Start trazodone 50 mg at bedtime, may repeat x 1 for insomnia arrest. We will adjust the Depakote post the next set of labs and valproic acid. MAN Edward MELENDEZ MD DR: ROSALIE/regan JOB#: [id number] / [id number]
--- NOTE | 2018-08-10 12:30 | PN ---
DATE: 08/09/2018 PSYCHIATRIC PROGRESS NOTE This is a late entry 08/09/2018 covers elements not covered in my initial note. SUBJECTIVE: I met with the patient in the evening. The patient slept 9 hours previous night. I met with her in her room together with her and son. We had a lengthy discussion about her diagnosis, her past history, my review of all her past medical records from a primary care physician and neuropsychological testing with Dr. Sullivan and the diagnosis of bipolar disorder, manic with psychotic features. She remains somewhat obsessive, ruminative, labile in her mood, more so in the family visits. Complains of sore throat. REVIEW OF SYSTEMS: No CV, , GI system symptoms on review. MENTAL STATUS EXAM: Reasonably oriented. Speech coherent, rapid. Mood is labile, but sometimes able to control herself very well. Abstraction fair, computation impaired, language function intact. Attention span short. LABORATORY DATA: Labs will be checked morning of 08/10/2018 with valproic acid level. IMPRESSION: Bipolar 1 disorder, manic with psychotic features; anxiety disorder, unspecified. PLAN: Continue Depakote ER 500 at bedtime, Risperdal 0.5 mg at bedtime. Rest unchanged from initial note. MAN Edward MELENDEZ MD DR: ROSALIE/regan JOB#: [id number] / [id number]
[2018-08-10 14:49] VITALS: BP 110/72
[2018-08-10] MEDS ORDERED: IV NORMAL SALINE 1,000ML 1,000 ML IV ONE (16:30)
--- NOTE | 2018-08-10 17:17 | PN ---
DATE: 08/09/2018 PSYCHIATRIC PROGRESS NOTE This is a late entry 08/09/2018 covers elements not covered in my initial note. MENTAL STATUS EXAMINATION: I met with the patient in the evening. The patient slept 9 hours previous night. MAN Edward MELENDEZ MD DR: ROSALIE/regan JOB#: [id number] / [id number]
[2018-08-10 20:32] LABS: CALCIUM 9.2 mg/dL (8.5-10.1); CREATININE 0.6 mg/dL (0.6-1.0); GFR 98.8; POTASSIUM 3.9 mmol/L (3.5-5.1)
[2018-08-10] MEDS: MELATONIN 3 MG TABLET PO SCH (20:51)
[2018-08-10] MEDS: traZODone 50 MG TABLET. PO SCH (20:51)
[2018-08-10] MEDS: DIVALPROEX ER 250 MG TAB.ER.24H. PO SCH (20:52)
[2018-08-10] MEDS: PATCH REMOVAL. MC SCH ×2 (20:52→21:00)
[2018-08-10] MEDS ORDERED: risperiDONE 0.25 MG TABLET. PO SCH (21:00)
--- NOTE | 2018-08-10 22:53 | PDOC ---
Progress Note. Subjective: I was called by [facility] RN earlier today to notify that patient Na 129, she was asymptomatic. A 500cc NS fluid bolus improved Na to 130, renal function remains normal. Blood pressures and other VS remain normal. [facility] RN reports only new med is depakote, known to cause hyponatremia in some cases. Pt also takes HCTZ as well. Objective: Vital Signs: Vital Signs Date Time Temp Pulse Resp B/P (MAP) Pulse Ox O2 Delivery O2 Flow Rate FiO2 08/10/18 16:10 97.2 20 08/10/18 14:49 83 110/72 (85) 99 08/10/18 07:10 Room Air I & O: Intake and Output 08/10/18 07:00 Intake Total 1080 ml Balance 1080 ml Intake Oral 1080 ml Labs: Laboratory Tests Test 08/10/18 10:05 08/10/18 20:10 White Blood Count 5.9 x10^3/uL (4.0-11.0) Red Blood Count 4.43 x10^6/uL (3.50-5.40) Hemoglobin 14.2 g/dL (12.0-15.5) Hematocrit 42.6 % (36.0-47.0) Mean Corpuscular Volume 96 fL (79-100) Mean Corpuscular Hemoglobin 32 pg (25-35) Mean Corpuscular Hemoglobin Concent 33 g/dL (31-37) Red Cell Distribution Width 12.2 % (11.5-14.5) Platelet Count 233 x10^3/uL (140-400) Neutrophils (%) (Auto) 74 % (31-73) Lymphocytes (%) (Auto) 15 % (24-48) Monocytes (%) (Auto) 9 % (0-9) Eosinophils (%) (Auto) 2 % (0-3) Basophils (%) (Auto) 0 % (0-3) Neutrophils # (Auto) 4.4 x10^3uL (1.8-7.7) Lymphocytes # (Auto) 0.9 x10^3/uL (1.0-4.8) Monocytes # (Auto) 0.5 x10^3/uL (0.0-1.1) Eosinophils # (Auto) 0.1 x10^3/uL (0.0-0.7) Basophils # (Auto) 0.0 x10^3/uL (0.0-0.2) Sodium Level 129 mmol/L (136-145) 130 mmol/L (136-145) Potassium Level 4.0 mmol/L (3.5-5.1) 3.9 mmol/L (3.5-5.1) Chloride Level 96 mmol/L (98-107) 95 mmol/L (98-107) Carbon Dioxide Level 22 mmol/L (21-32) 28 mmol/L (21-32) Anion Gap 11 (6-14) 7 (6-14) Blood Urea Nitrogen 10 mg/dL (7-20) 12 mg/dL (7-20) Creatinine 0.6 mg/dL (0.6-1.0) 0.6 mg/dL (0.6-1.0) Estimated GFR (Cockcroft-Gault) 98.8 98.8 BUN/Creatinine Ratio 17 (6-20) Glucose Level 94 mg/dL (70-99) 98 mg/dL (70-99) Calcium Level 9.0 mg/dL (8.5-10.1) 9.2 mg/dL (8.5-10.1) Total Bilirubin 0.4 mg/dL (0.2-1.0) Aspartate Amino Transf (AST/SGOT) 62 U/L (15-37) Alanine Aminotransferase (ALT/SGPT) 38 U/L (14-59) Alkaline Phosphatase 81 U/L (46-116) Total Protein 6.8 g/dL (6.4-8.2) Albumin 3.2 g/dL (3.4-5.0) Albumin/Globulin Ratio 0.9 (1.0-1.7) Valproic Acid (Depakene) Level 45 mcg/mL (50-100) Valproic Acid Last Dose Date 08/09/2018 Valproic Acid Last Dose Time 2100 Assessment: Hyponatremia Plan: Hold HCTZ for now, RN to consult with Dr Franco for possible alternative medication other than depakote to avoid hyponatremia complications. Gentle hydration with NS 150cc/h overnight recheck BMP in am. RN to place this issue on "physician to do list" for tomorrow as shift change in am. HAO PATEL DO Aug 10, 2018 22:53
--- NOTE | 2018-08-10 22:57 | PDOC ---
Exam Note: Miah Note: Please also refer to the separate dictated note~for this date of service dictated separately.~Patient seen individually. Discussed the patient with Nursing staff reviewed the chart.~Reviewed interim history and current functioning. Reviewed vital signs,~Labs/ Radiology~and current medications noted below. Continue current treatment with the changes noted in the dictated addendum note Assessment: Vital Signs: Vital Signs Date Time Temp Pulse Resp B/P (MAP) Pulse Ox O2 Delivery O2 Flow Rate FiO2 08/10/18 16:10 97.2 20 08/10/18 14:49 83 110/72 (85) 99 08/10/18 07:10 Room Air I&O Intake and Output 08/10/18 07:00 Intake Total 1080 ml Balance 1080 ml Intake Oral 1080 ml Labs: Laboratory Tests Test 08/10/18 10:05 08/10/18 20:10 White Blood Count 5.9 x10^3/uL (4.0-11.0) Red Blood Count 4.43 x10^6/uL (3.50-5.40) Hemoglobin 14.2 g/dL (12.0-15.5) Hematocrit 42.6 % (36.0-47.0) Mean Corpuscular Volume 96 fL (79-100) Mean Corpuscular Hemoglobin 32 pg (25-35) Mean Corpuscular Hemoglobin Concent 33 g/dL (31-37) Red Cell Distribution Width 12.2 % (11.5-14.5) Platelet Count 233 x10^3/uL (140-400) Neutrophils (%) (Auto) 74 % (31-73) H Lymphocytes (%) (Auto) 15 % (24-48) L Monocytes (%) (Auto) 9 % (0-9) Eosinophils (%) (Auto) 2 % (0-3) Basophils (%) (Auto) 0 % (0-3) Neutrophils # (Auto) 4.4 x10^3uL (1.8-7.7) Lymphocytes # (Auto) 0.9 x10^3/uL (1.0-4.8) L Monocytes # (Auto) 0.5 x10^3/uL (0.0-1.1) Eosinophils # (Auto) 0.1 x10^3/uL (0.0-0.7) Basophils # (Auto) 0.0 x10^3/uL (0.0-0.2) Sodium Level 129 mmol/L (136-145) L 130 mmol/L (136-145) L Potassium Level 4.0 mmol/L (3.5-5.1) 3.9 mmol/L (3.5-5.1) Chloride Level 96 mmol/L (98-107) L 95 mmol/L (98-107) L Carbon Dioxide Level 22 mmol/L (21-32) 28 mmol/L (21-32) Anion Gap 11 (6-14) 7 (6-14) Blood Urea Nitrogen 10 mg/dL (7-20) 12 mg/dL (7-20) Creatinine 0.6 mg/dL (0.6-1.0) 0.6 mg/dL (0.6-1.0) Estimated GFR (Cockcroft-Gault) 98.8 98.8 BUN/Creatinine Ratio 17 (6-20) Glucose Level 94 mg/dL (70-99) 98 mg/dL (70-99) Calcium Level 9.0 mg/dL (8.5-10.1) 9.2 mg/dL (8.5-10.1) Total Bilirubin 0.4 mg/dL (0.2-1.0) Aspartate Amino Transferase (AST) 62 U/L (15-37) H Alanine Aminotransferase (ALT) 38 U/L (14-59) Alkaline Phosphatase 81 U/L (46-116) Total Protein 6.8 g/dL (6.4-8.2) Albumin 3.2 g/dL (3.4-5.0) L Albumin/Globulin Ratio 0.9 (1.0-1.7) L Valproic Acid Level 45 mcg/mL (50-100) L Valproic Acid Last Dose Date 08/09/2018 Valproic Acid Last Dose Time 2100 Current Medications: Meds: Current Medications Acetaminophen (Tylenol) 650 mg PRN Q6HRS PRN PO PAIN / TEMP Last administered on 08/10/18at 16:16; Start 08/06/18 at 02:15 Multi-Ingredient Ointment (Analgesic [place]) 1 yessenia PRN QID PRN TP MUSCLE PAIN Last administered on 08/07/18at 14:33; Start 08/06/18 at 02:15 Al Hydroxide/Mg Hydroxide (Mylanta Plus Xs) 15 ml PRN AFTMEALHC PRN PO DYSPEPSIA; Start 08/06/18 at 02:15 Magnesium Hydroxide (Milk Of Magnesia) 2,400 mg PRN QHS PRN PO CONSTIPATION; Start 08/06/18 at 02:15 Albuterol Sulfate (Ventolin Hfa Inhaler) 2 puff PRN Q4HRS PRN INH SHORTNESS OF BREATH; Start 08/06/18 at 09:45; Stop 08/06/18 at 11:04; Status DC Clonazepam (KlonoPIN) 0.25 mg PRN DAILY PRN PO ANXIETY Last administered on 14:05; Start 08/06/18 at 09:45 Vitamin D (Vitamin D3) 1,000 unit DAILY PO Last administered on 08/10/18 09: 43; Start 08/07/18 at 09:00 Lisinopril (Prinivil) 20 mg DAILY PO Last administered on 08/10/18 09:42; Start 08/06/18 at 10:00 Melatonin 9 mg QHS PO Last administered on 08/10/18at 20:51; Start 08/06/18 at 21:00 Multivitamins/ Calcium (Thera-M Plus) 1 tab DAILY PO Last administered on 08/10 09:42; Start 08/07/18 at 09:00 Quetiapine Fumarate (SEROquel) 25 mg QHS PO Last administered on 08/06/18at 20: 45; Start 08/06/18 at 10:00; Stop 08/07/18 at 07:23; Status DC Acetaminophen (Tylenol) 500 mg BID PO Last administered on 08/10/18at 20:50; Start 08/06/18 at 21:00 Hydrochlorothiazide (Microzide) 12.5 mg DAILY PO Last administered on 09:42; Start 08/06/18 at 10:00 Albuterol Sulfate (Ventolin) 2.5 mg PRN Q4HRS PRN NEB SHORTNESS OF BREATH; Start 08/06/18 at 11:00 Olanzapine (ZyPREXA ZYDIS) 2.5 mg PRN Q2HR PRN PO PSYCHOSIS Last administered on 08/10/18at 04:55; Start 08/06/18 at 19:30 Divalproex Sodium (Depakote Er) 500 mg DAILY PO Last administered on 08/07/18at 08:13; Start 08/07/18 at 08:00; Stop 08/07/18 at 19:16; Status DC Risperidone (RisperDAL) 0.25 mg DAILY PO Last administered on 08/07/18at 08:11; Start 08/07/18 at 09:00; Stop 08/07/18 at 19:16; Status DC Divalproex Sodium (Depakote Er) 500 mg QHS PO Last administered on 08/09/18at 19:18; Start 08/08/18 at 18:45; Stop 08/10/18 at 18:19; Status DC Risperidone (RisperDAL) 0.25 mg QHS PO ; Start 08/08/18 at 21:00; Stop 08/08/18 at 21:00; Status DC Polyethylene Glycol (miraLAX) 17 gm PRN DAILY PRN PO CONSTIPATION; Start at 21:15 Glycerin (Sani-Supp Adult) 1 supp PRN DAILY PRN ID constipation; Start at 21:15 Lidocaine (Lidoderm) 1 patch DAILY TD Last administered on 08/10/18at 09:43; Start 08/08/18 at 09:00 Miscellaneous (Lidoderm Patch Removal) 1 ea QHS MC Last administered on at 20:52; Start 08/07/18 at 21:00 Risperidone (RisperDAL) 0.5 mg QHS PO Last administered on 08/09/18 19:18; Start 08/08/18 at 18:45; Stop 08/10/18 at 20:14; Status DC Trazodone HCl (Desyrel) 50 mg QHS PO Last administered on 08/10/18at 20:51; Start 08/08/18 at 21:00 Trazodone HCl (Desyrel) 50 mg PRN QHS PRN PO INSOMNIA Last administered on 07/17at 21:45; Start 08/08/18 at 16:45 Docusate Sodium (Colace) 100 mg BID PO Last administered on 08/10/18at 20:50; Start 08/08/18 at 18:45 Throat Lozenges (Cepacol Sore Throat Lozenge) 1 doretha PRN Q2HR PRN PO SORE THROAT Last administered on 08/10/18at 22:08; Start 08/09/18 at 17:45 Sodium Chloride 1,000 ml @ 500 mls/hr 1X ONCE IV Last administered on at 17:33; Start 08/10/18 at 16:30; Stop 08/10/18 at 18:29; Status DC Divalproex Sodium (Depakote Er) 750 mg QHS PO Last administered on 08/10/18at 20:52; Start 08/10/18 at 21:00 Risperidone (RisperDAL) 0.25 mg QHS PO Last administered on 08/10/18at 20:52; Start 08/10/18 at 21:00 Lidocaine (Lidoderm) 1 patch DAILY TD ; Start 08/11/18 at 09:00 Miscellaneous (Lidoderm Patch Removal) 1 ea QHS MC Last administered on at 21:00; Start 08/10/18 at 21:00 Active Scripts Active Reported Centrum Adults Tablet (Multivitamin/Iron/Folic Acid) 1 Each Tablet 1 Each PO DAILY Vitamin D (Cholecalciferol (Vitamin D3)) 1,000 Unit Capsule 1,000 Unit PO DAILY Proair Hfa Inhaler (Albuterol Sulfate) 8.5 Gm Hfa.aer.ad 2 Puff INH PRN Q4HRS PRN Tylenol (Acetaminophen) 325 Mg Tablet 500 Mg PO BID Clonazepam 0.5 Mg Tablet 0.25 Mg PO PRN DAILY PRN Melatonin 3 Mg Tablet 10 Mg PO QHS Seroquel (Quetiapine Fumarate) 25 Mg Tablet 25 Mg PO QHS Lisinopril-Hctz 20-12.5 Mg Tab (Lisinopril/Hydrochlorothiazide) 1 Each Tablet 1 Tab PO DAILY I have reviewed the current psychotropics carefully including drug interactions. Risk benefit ratio favors no change other than as noted in my dictated progress note. Diagnosis: Problems: (1) Anxiety disorder (2) Bipolar affective, mixed, sev w/ psych (3) Impulse control disorder JERMAINE MELENDEZ MD Aug 10, 2018 22:57
[2018-08-10] MEDS ORDERED: IV NORMAL SALINE 1,000ML 1,000 ML IV SCH (23:00)
[2018-08-11 00:42] VITALS: BP 116/73
[2018-08-11] MEDS: clonazePAM 0.5 MG TABLET PO PRN (01:30)
[2018-08-11] MEDS: BENZOCAINE/MENTHOL LOZNGE 18'S BOX. PO PRN (06:21)
[2018-08-11 07:24] LABS: CALCIUM 8.5 mg/dL (8.5-10.1); CREATININE 0.6 mg/dL (0.6-1.0); GFR 98.8
[2018-08-11] MEDS: LISINOPRIL 20 MG TABLET PO SCH (09:00)
[2018-08-11] MEDS: DOCUSATE SODIUM 100 MG CAPSULE PO SCH ×2 (09:28→19:34)
[2018-08-11] MEDS: MULTIVITAMIN with MINERAL TABLET. PO SCH (09:31)
[2018-08-11] MEDS: ACETAMINOPHEN 325 MG TABLET PO SCH ×2 (09:32→19:34)
[2018-08-11] MEDS: LIDOCAINE (700MG/PATCH) PATCH. TD SCH ×2 (09:32→09:33)
[2018-08-11] MEDS: CHOLECALCIFEROL (VITAMIN D3) 1,000 UNIT TABLET PO SCH (09:32)
--- NOTE | 2018-08-11 12:47 | RAD ---
Examination: PORTABLE CHEST 1V History: PORTABLE CHEST 1 VIEW congestion Comparison/Correlation: None Findings: Portable upright frontal view of the chest was obtained. Heart size and pulmonary vasculature are normal. No infiltrate or significant pleural effusion. No pneumothorax. Partially visualized lumbar spine rods and screws noted. Impression: No infiltrate. Electronically signed by: Wyatt Grissom MD (08/11/2018 12:43 PM) [facility]
--- NOTE | 2018-08-11 12:49 | EKG ---
[address] [address] Test Date: 2018-08-06 Test Time: 20:16:56 Pat Name: PRECIOUS BOGGS Department: Room: [facility] 1 Gender: [employer] Grade Teacher: : 1945 Requested By: JERMAINE MELENDEZ Order Number: [id number] Reading MD: Lucho Rose MD Measurements Intervals [place] Rate: P: AL: QRS: QRSD: T: QT: QTc: Interpretive Statements SR BASELINE ARTIFACT CANNOT RULE OUT OLD SEPTAL INFARCT Electronically Signed On 08-12-2018 10:02:20 [employer] by Lucho Rose MD
[2018-08-11 16:12] VITALS: BP 134/84
[2018-08-11] MEDS: ACETAMINOPHEN 325 MG TABLET PO PRN (16:37)
[2018-08-11] MEDS: MELATONIN 3 MG TABLET PO SCH (19:33)
[2018-08-11] MEDS: DIVALPROEX ER 250 MG TAB.ER.24H. PO SCH (19:33)
[2018-08-11] MEDS: traZODone 50 MG TABLET. PO SCH (19:34)
--- NOTE | 2018-08-11 19:35 | PN ---
DATE: 08/10/2018 PSYCHIATRIC PROGRESS NOTE This late entry 08/10/2018 covers elements not covered in my initial note. SUBJECTIVE: I met with the patient in the evening at some length. The patient had slept for 3 hours previous night. She has had some symptoms of upper respiratory infection and states she is quite scared of another demented patient, who hits out at other patients and gives this as the reason she could not sleep at night. She appeared somewhat tired, sedated, and we opted to reduce the Risperdal from 0.5 mg at bedtime down to 0.25 mg p.o. at bedtime. The patient has also been dehydrated and has received IV fluids. The valproic acid level is 45. REVIEW OF SYSTEMS: Positive for some pedal edema and tiredness. No CV, , GI, eye system symptoms on review. MENTAL STATUS EXAM: Reasonably oriented. Speech is coherent, still somewhat pressured, less so than before. Abstraction fair, computation impaired, language function intact, attention span short. Mood and affect remain somewhat grandiosed, but better than before. LABORATORY DATA: Reviewed. IMPRESSION: Bipolar 1 disorder, mixed; anxiety disorder, unspecified. PLAN: Increase Depakote ER to 750 mg p.o. at bedtime. Check CBC, CMP, valproic acid level in 3 days. Reduce the Risperdal down to 0.25 mg p.o. at bedtime at least for one night and then decide after that. Rest unchanged. MAN Edward MELENDEZ MD DR: ROSALIE/regan JOB#: [id number] / [id number]
[2018-08-11] MEDS: MIRTAZAPINE 7.5 MG TABLET. PO SCH (19:37)
[2018-08-11] MEDS: risperiDONE 0.25 MG TABLET. PO SCH (19:37)
[2018-08-11] MEDS: PATCH REMOVAL. MC SCH ×2 (20:01)
--- NOTE | 2018-08-11 23:11 | PDOC ---
Exam Note: Miah Note: Please also refer to the separate dictated note~for this date of service dictated separately.~Patient seen individually. Discussed the patient with Nursing staff reviewed the chart.~Reviewed interim history and current functioning. Reviewed vital signs,~Labs/ Radiology~and current medications noted below. Continue current treatment with the changes noted in the dictated addendum note Assessment: Vital Signs: Vital Signs Date Time Temp Pulse Resp B/P (MAP) Pulse Ox O2 Delivery O2 Flow Rate FiO2 08/11/18 16:12 98.7 96 18 134/84 (101) 100 08/11/18 01:44 Room Air I&O Intake and Output 08/11/18 07:00 Intake Total 1200 ml Balance 1200 ml Intake Oral 1200 ml Labs: Laboratory Tests Test 08/11/18 06:56 Sodium Level 135 mmol/L (136-145) L Potassium Level 4.0 mmol/L (3.5-5.1) Chloride Level 101 mmol/L (98-107) Carbon Dioxide Level 24 mmol/L (21-32) Anion Gap 10 (6-14) Blood Urea Nitrogen 6 mg/dL (7-20) L Creatinine 0.6 mg/dL (0.6-1.0) Estimated GFR (Cockcroft-Gault) 98.8 Glucose Level 111 mg/dL (70-99) H Calcium Level 8.5 mg/dL (8.5-10.1) Current Medications: Meds: Current Medications Acetaminophen (Tylenol) 650 mg PRN Q6HRS PRN PO PAIN / TEMP Last administered on 08/11/18at 16:37; Start 08/06/18 at 02:15 Multi-Ingredient Ointment (Analgesic [place]) 1 yessenia PRN QID PRN TP MUSCLE PAIN Last administered on 08/07/18at 14:33; Start 08/06/18 at 02:15 Al Hydroxide/Mg Hydroxide (Mylanta Plus Xs) 15 ml PRN AFTMEALHC PRN PO DYSPEPSIA; Start 08/06/18 at 02:15 Magnesium Hydroxide (Milk Of Magnesia) 2,400 mg PRN QHS PRN PO CONSTIPATION; Start 08/06/18 at 02:15 Albuterol Sulfate (Ventolin Hfa Inhaler) 2 puff PRN Q4HRS PRN INH SHORTNESS OF BREATH; Start 08/06/18 at 09:45; Stop 08/06/18 at 11:04; Status DC Clonazepam (KlonoPIN) 0.25 mg PRN DAILY PRN PO ANXIETY Last administered on 01:30; Start 08/06/18 at 09:45 Vitamin D (Vitamin D3) 1,000 unit DAILY PO Last administered on 08/11/18 09: 32; Start 08/07/18 at 09:00 Lisinopril (Prinivil) 20 mg DAILY PO Last administered on 08/10/18 09:42; Start 08/06/18 at 10:00 Melatonin 9 mg QHS PO Last administered on 08/11/18 19:33; Start 08/06/18 at 21:00 Multivitamins/ Calcium (Thera-M Plus) 1 tab DAILY PO Last administered on 08/11 09:31; Start 08/07/18 at 09:00 Quetiapine Fumarate (SEROquel) 25 mg QHS PO Last administered on 08/06/18 20: 45; Start 08/06/18 at 10:00; Stop 08/07/18 at 07:23; Status DC Acetaminophen (Tylenol) 500 mg BID PO Last administered on 08/11/18 19:34; Start 08/06/18 at 21:00 Hydrochlorothiazide (Microzide) 12.5 mg DAILY PO Last administered on 09:42; Start 08/06/18 at 10:00; Stop 08/10/18 at 22:59; Status DC Albuterol Sulfate (Ventolin) 2.5 mg PRN Q4HRS PRN NEB SHORTNESS OF BREATH Last administered on 08/11/18 01:41; Start 08/06/18 at 11:00 Olanzapine (ZyPREXA ZYDIS) 2.5 mg PRN Q2HR PRN PO PSYCHOSIS Last administered on 08/10/18 04:55; Start 08/06/18 at 19:30 Divalproex Sodium (Depakote Er) 500 mg DAILY PO Last administered on 08/07/18 08:13; Start 08/07/18 at 08:00; Stop 08/07/18 at 19:16; Status DC Risperidone (RisperDAL) 0.25 mg DAILY PO Last administered on 08/07/18 08:11; Start 08/07/18 at 09:00; Stop 08/07/18 at 19:16; Status DC Divalproex Sodium (Depakote Er) 500 mg QHS PO Last administered on 08/09/18 19:18; Start 08/08/18 at 18:45; Stop 08/10/18 at 18:19; Status DC Risperidone (RisperDAL) 0.25 mg QHS PO ; Start 08/08/18 at 21:00; Stop 08/08/18 at 21:00; Status DC Polyethylene Glycol (miraLAX) 17 gm PRN DAILY PRN PO CONSTIPATION; Start at 21:15 Glycerin (Sani-Supp Adult) 1 supp PRN DAILY PRN [place] constipation; Start at 21:15 Lidocaine (Lidoderm) 1 patch DAILY TD Last administered on 08/11/18 09:32; Start 08/08/18 at 09:00 Miscellaneous (Lidoderm Patch Removal) 1 ea QHS MC Last administered on at 20:01; Start 08/07/18 at 21:00 Risperidone (RisperDAL) 0.5 mg QHS PO Last administered on 08/09/18 19:18; Start 08/08/18 at 18:45; Stop 08/10/18 at 20:14; Status DC Trazodone HCl (Desyrel) 50 mg QHS PO Last administered on 08/11/18 19:34; Start 08/08/18 at 21:00 Trazodone HCl (Desyrel) 50 mg PRN QHS PRN PO INSOMNIA Last administered on 07/17at 21:45; Start 08/08/18 at 16:45 Docusate Sodium (Colace) 100 mg BID PO Last administered on 08/11/18 19:34; Start 08/08/18 at 18:45 Throat Lozenges (Cepacol Sore Throat Lozenge) 1 doretha PRN Q2HR PRN PO SORE THROAT Last administered on 08/11/18 06:21; Start 08/09/18 at 17:45 Sodium Chloride 1,000 ml @ 500 mls/hr 1X ONCE IV Last administered on at 17:33; Start 08/10/18 at 16:30; Stop 08/10/18 at 18:29; Status DC Divalproex Sodium (Depakote Er) 750 mg QHS PO Last administered on 08/11/18 19:33; Start 08/10/18 at 21:00 Risperidone (RisperDAL) 0.25 mg QHS PO Last administered on 08/10/18at 20:52; Start 08/10/18 at 21:00; Stop 08/11/18 at 14:57; Status DC Lidocaine (Lidoderm) 1 patch DAILY TD ; Start 08/11/18 at 09:00 Miscellaneous (Lidoderm Patch Removal) 1 ea QHS MC Last administered on 20:01; Start 08/10/18 at 21:00 Sodium Chloride 1,000 ml @ 150 mls/hr Q6H40M IV Last administered on at 23:18; Start 08/10/18 at 23:00; Stop 08/11/18 at 05:40; Status DC Guaifenesin (Mucinex Er) 600 mg BID PO Last administered on 08/11/18 19:37; Start 08/11/18 at 21:00; Stop 08/18/18 at 20:59 Risperidone (RisperDAL) 0.75 mg QHS PO Last administered on 08/11/18 19:37; Start 08/11/18 at 21:00 Mirtazapine (Remeron) 7.5 mg QHS PO Last administered on 08/11/18 19:37; Start 08/11/18 at 21:00 Active Scripts Active Reported Centrum Adults Tablet (Multivitamin/Iron/Folic Acid) 1 Each Tablet 1 Each PO DAILY Vitamin D (Cholecalciferol (Vitamin D3)) 1,000 Unit Capsule 1,000 Unit PO DAILY Proair Hfa Inhaler (Albuterol Sulfate) 8.5 Gm Hfa.aer.ad 2 Puff INH PRN Q4HRS PRN Tylenol (Acetaminophen) 325 Mg Tablet 500 Mg PO BID Clonazepam 0.5 Mg Tablet 0.25 Mg PO PRN DAILY PRN Melatonin 3 Mg Tablet 10 Mg PO QHS Seroquel (Quetiapine Fumarate) 25 Mg Tablet 25 Mg PO QHS Lisinopril-Hctz 20-12.5 Mg Tab (Lisinopril/Hydrochlorothiazide) 1 Each Tablet 1 Tab PO DAILY I have reviewed the current psychotropics carefully including drug interactions. Risk benefit ratio favors no change other than as noted in my dictated progress note. Diagnosis: Problems: (1) Anxiety disorder (2) Bipolar affective, mixed, sev w/ psych (3) Impulse control disorder JERMAINE MELENDEZ MD Aug 11, 2018 23:11
[2018-08-12 05:57] VITALS: BP 108/73
[2018-08-12 06:55] LABS: CALCIUM 9.2 mg/dL (8.5-10.1); CREATININE 0.6 mg/dL (0.6-1.0); GFR 98.8; POTASSIUM 3.8 mmol/L (3.5-5.1)
[2018-08-12 08:43] VITALS: BP 113/66
[2018-08-12] MEDS: LIDOCAINE (700MG/PATCH) PATCH. TD SCH ×4 (09:00→09:22)
[2018-08-12] MEDS: LISINOPRIL 20 MG TABLET PO SCH (09:16)
[2018-08-12] MEDS: DOCUSATE SODIUM 100 MG CAPSULE PO SCH ×2 (09:16→20:00)
[2018-08-12] MEDS: MULTIVITAMIN with MINERAL TABLET. PO SCH (09:16)
[2018-08-12] MEDS: CHOLECALCIFEROL (VITAMIN D3) 1,000 UNIT TABLET PO SCH (09:17)
[2018-08-12] MEDS: ACETAMINOPHEN 325 MG TABLET PO SCH ×2 (09:22→20:03)
[2018-08-12] MEDS: clonazePAM 0.5 MG TABLET PO PRN (14:33)
[2018-08-12 15:34] VITALS: BP 124/81
[2018-08-12] MEDS: risperiDONE 0.25 MG TABLET. PO SCH (20:00)
[2018-08-12] MEDS: MELATONIN 3 MG TABLET PO SCH (20:00)
[2018-08-12] MEDS: traZODone 50 MG TABLET. PO SCH (20:02)
[2018-08-12] MEDS: DIVALPROEX ER 250 MG TAB.ER.24H. PO SCH (20:02)
[2018-08-12] MEDS: MIRTAZAPINE 7.5 MG TABLET. PO SCH (20:02)
[2018-08-12] MEDS: PATCH REMOVAL. MC SCH ×2 (20:06)
--- NOTE | 2018-08-12 20:56 | PN ---
DATE: 08/11/2018 PSYCHIATRIC PROGRESS NOTE This late entry 08/11/2018 covers elements not covered in my initial note. SUBJECTIVE: I met with the patient in the early afternoon. The patient slept just 3/4 hours previous night. This is because she states she is afraid of one of the other demented patients, who is actually physically struck out at other patients on the unit. She has been obsessive about using the phone fiddling with her IV. Chest x-ray is negative. She continues to have cough and upper respiratory tract infection symptoms. Electrolytes are better with bolus of 500 mL fluid. REVIEW OF SYSTEMS: Positive for the cough, tiredness. No CV, , GI, eye system symptoms on review. MENTAL STATUS EXAM: Reasonably oriented. Speech is coherent, still somewhat pressured, but much less than before. Abstraction fair, computation impaired, language function intact, attention span short. Mood and affect remain somewhat hypomanic, but improved. LABORATORY DATA: Reviewed. IMPRESSION: Bipolar 1 disorder, mixed anxiety disorder, unspecified. Rest unchanged. PLAN: Increase the Risperdal back from 0.25 mg at bedtime to 0.5 mg at bedtime, start Remeron 7.5 mg at bedtime to help with insomnia. Continue Depakote ER 750 at bedtime. Labs and level awaited on 08/13/2018. Rest unchanged from initial note. MAN Edward MELENDEZ MD DR: ROSALIE/regan JOB#: [id number] / [id number]
--- NOTE | 2018-08-12 22:48 | PDOC ---
Exam Note: Miah Note: Please also refer to the separate dictated note~for this date of service dictated separately.~Patient seen individually. Discussed the patient with Nursing staff reviewed the chart.~Reviewed interim history and current functioning. Reviewed vital signs,~Labs/ Radiology~and current medications noted below. Continue current treatment with the changes noted in the dictated addendum note Assessment: Vital Signs: Vital Signs Date Time Temp Pulse Resp B/P (MAP) Pulse Ox O2 Delivery O2 Flow Rate FiO2 08/12/18 15:34 96.5 88 18 124/81 (95) 100 Room Air I&O Intake and Output 08/12/18 07:00 Intake Total 1000 ml Balance 1000 ml Intake Oral 1000 ml # Voids 1 Labs: Laboratory Tests Test 08/12/18 06:16 Sodium Level 138 mmol/L (136-145) Potassium Level 3.8 mmol/L (3.5-5.1) Chloride Level 101 mmol/L (98-107) Carbon Dioxide Level 27 mmol/L (21-32) Anion Gap 10 (6-14) Blood Urea Nitrogen 7 mg/dL (7-20) Creatinine 0.6 mg/dL (0.6-1.0) Estimated GFR (Cockcroft-Gault) 98.8 Glucose Level 97 mg/dL (70-99) Calcium Level 9.2 mg/dL (8.5-10.1) Current Medications: Meds: Current Medications Acetaminophen (Tylenol) 650 mg PRN Q6HRS PRN PO PAIN / TEMP Last administered on 08/11/18at 16:37; Start 08/06/18 at 02:15 Multi-Ingredient Ointment (Analgesic [place]) 1 yessenia PRN QID PRN TP MUSCLE PAIN Last administered on 08/07/18at 14:33; Start 08/06/18 at 02:15 Al Hydroxide/Mg Hydroxide (Mylanta Plus Xs) 15 ml PRN AFTMEALHC PRN PO DYSPEPSIA; Start 08/06/18 at 02:15 Magnesium Hydroxide (Milk Of Magnesia) 2,400 mg PRN QHS PRN PO CONSTIPATION; Start 08/06/18 at 02:15 Albuterol Sulfate (Ventolin Hfa Inhaler) 2 puff PRN Q4HRS PRN INH SHORTNESS OF BREATH; Start 08/06/18 at 09:45; Stop 08/06/18 at 11:04; Status DC Clonazepam (KlonoPIN) 0.25 mg PRN DAILY PRN PO ANXIETY Last administered on 14:33; Start 08/06/18 at 09:45 Vitamin D (Vitamin D3) 1,000 unit DAILY PO Last administered on 08/12/18 09: 17; Start 08/07/18 at 09:00 Lisinopril (Prinivil) 20 mg DAILY PO Last administered on 08/12/18 09:16; Start 08/06/18 at 10:00 Melatonin 9 mg QHS PO Last administered on 08/12/18 20:00; Start 08/06/18 at 21:00 Multivitamins/ Calcium (Thera-M Plus) 1 tab DAILY PO Last administered on 08/12 09:16; Start 08/07/18 at 09:00 Quetiapine Fumarate (SEROquel) 25 mg QHS PO Last administered on 08/06/18 20: 45; Start 08/06/18 at 10:00; Stop 08/07/18 at 07:23; Status DC Acetaminophen (Tylenol) 500 mg BID PO Last administered on 08/12/18 20:03; Start 08/06/18 at 21:00 Hydrochlorothiazide (Microzide) 12.5 mg DAILY PO Last administered on 09:42; Start 08/06/18 at 10:00; Stop 08/10/18 at 22:59; Status DC Albuterol Sulfate (Ventolin) 2.5 mg PRN Q4HRS PRN NEB SHORTNESS OF BREATH Last administered on 08/11/18at 01:41; Start 08/06/18 at 11:00 Olanzapine (ZyPREXA ZYDIS) 2.5 mg PRN Q2HR PRN PO PSYCHOSIS Last administered on 08/10/18 04:55; Start 08/06/18 at 19:30 Divalproex Sodium (Depakote Er) 500 mg DAILY PO Last administered on 08/07/18 08:13; Start 08/07/18 at 08:00; Stop 08/07/18 at 19:16; Status DC Risperidone (RisperDAL) 0.25 mg DAILY PO Last administered on 08/07/18 08:11; Start 08/07/18 at 09:00; Stop 08/07/18 at 19:16; Status DC Divalproex Sodium (Depakote Er) 500 mg QHS PO Last administered on 08/09/18 19:18; Start 08/08/18 at 18:45; Stop 08/10/18 at 18:19; Status DC Risperidone (RisperDAL) 0.25 mg QHS PO ; Start 08/08/18 at 21:00; Stop 08/08/18 at 21:00; Status DC Polyethylene Glycol (miraLAX) 17 gm PRN DAILY PRN PO CONSTIPATION; Start at 21:15 Glycerin (Sani-Supp Adult) 1 supp PRN DAILY PRN [place] constipation; Start at 21:15 Lidocaine (Lidoderm) 1 patch DAILY TD Last administered on 08/11/18at 09:32; Start 08/08/18 at 09:00 Miscellaneous (Lidoderm Patch Removal) 1 ea QHS MC Last administered on at 20:06; Start 08/07/18 at 21:00 Risperidone (RisperDAL) 0.5 mg QHS PO Last administered on 08/09/18 19:18; Start 08/08/18 at 18:45; Stop 08/10/18 at 20:14; Status DC Trazodone HCl (Desyrel) 50 mg QHS PO Last administered on 08/12/18at 20:02; Start 08/08/18 at 21:00 Trazodone HCl (Desyrel) 50 mg PRN QHS PRN PO INSOMNIA Last administered on 07/17at 21:45; Start 08/08/18 at 16:45 Docusate Sodium (Colace) 100 mg BID PO Last administered on 08/12/18at 20:00; Start 08/08/18 at 18:45 Throat Lozenges (Cepacol Sore Throat Lozenge) 1 doretha PRN Q2HR PRN PO SORE THROAT Last administered on 08/11/18at 06:21; Start 08/09/18 at 17:45 Sodium Chloride 1,000 ml @ 500 mls/hr 1X ONCE IV Last administered on at 17:33; Start 08/10/18 at 16:30; Stop 08/10/18 at 18:29; Status DC Divalproex Sodium (Depakote Er) 750 mg QHS PO Last administered on 08/12/18at 20:02; Start 08/10/18 at 21:00 Risperidone (RisperDAL) 0.25 mg QHS PO Last administered on 08/10/18at 20:52; Start 08/10/18 at 21:00; Stop 08/11/18 at 14:57; Status DC Lidocaine (Lidoderm) 1 patch DAILY TD ; Start 08/11/18 at 09:00 Miscellaneous (Lidoderm Patch Removal) 1 ea QHS MC Last administered on at 20:06; Start 08/10/18 at 21:00 Sodium Chloride 1,000 ml @ 150 mls/hr Q6H40M IV Last administered on at 23:18; Start 08/10/18 at 23:00; Stop 08/11/18 at 05:40; Status DC Guaifenesin (Mucinex Er) 600 mg BID PO Last administered on 08/12/18at 20:00; Start 08/11/18 at 21:00; Stop 08/18/18 at 20:59 Risperidone (RisperDAL) 0.75 mg QHS PO Last administered on 08/12/18at 20:00; Start 08/11/18 at 21:00 Mirtazapine (Remeron) 7.5 mg QHS PO Last administered on 08/12/18at 20:02; Start 08/11/18 at 21:00 Active Scripts Active Reported Centrum Adults Tablet (Multivitamin/Iron/Folic Acid) 1 Each Tablet 1 Each PO DAILY Vitamin D (Cholecalciferol (Vitamin D3)) 1,000 Unit Capsule 1,000 Unit PO DAILY Proair Hfa Inhaler (Albuterol Sulfate) 8.5 Gm Hfa.aer.ad 2 Puff INH PRN Q4HRS PRN Tylenol (Acetaminophen) 325 Mg Tablet 500 Mg PO BID Clonazepam 0.5 Mg Tablet 0.25 Mg PO PRN DAILY PRN Melatonin 3 Mg Tablet 10 Mg PO QHS Seroquel (Quetiapine Fumarate) 25 Mg Tablet 25 Mg PO QHS Lisinopril-Hctz 20-12.5 Mg Tab (Lisinopril/Hydrochlorothiazide) 1 Each Tablet 1 Tab PO DAILY I have reviewed the current psychotropics carefully including drug interactions. Risk benefit ratio favors no change other than as noted in my dictated progress note. Diagnosis: Problems: (1) Anxiety disorder (2) Bipolar affective, mixed, sev w/ psych (3) Impulse control disorder JERMAINE MELENDEZ MD Aug 12, 2018 22:47
[2018-08-13 06:03] VITALS: BP 116/57
[2018-08-13] MEDS: DOCUSATE SODIUM 100 MG CAPSULE PO SCH ×2 (07:45→19:23)
[2018-08-13] MEDS: CHOLECALCIFEROL (VITAMIN D3) 1,000 UNIT TABLET PO SCH (07:46)
[2018-08-13] MEDS: LISINOPRIL 20 MG TABLET PO SCH (07:46)
[2018-08-13] MEDS: MULTIVITAMIN with MINERAL TABLET. PO SCH (07:47)
[2018-08-13] MEDS: ACETAMINOPHEN 325 MG TABLET PO SCH ×2 (07:47→21:27)
[2018-08-13] MEDS: LIDOCAINE (700MG/PATCH) PATCH. TD SCH ×2 (07:48)
[2018-08-13 07:55] LABS: BASO % 1 % (0-3); EOS # 0.2 x10^3/uL (0.0-0.7); EOS % 3 % (0-3); HEMATOCRIT 40.1 % (36.0-47.0); HEMOGLOBIN 13.6 g/dL (12.0-15.5); LYMPH % 15 % (24-48); MEAN CORPUSCULAR HEMOGLOBIN 32 pg (25-35); MEAN CORPUSCULAR HGB CONC 34 g/dL (31-37); MEAN CORPUSCULAR VOLUME 95 fL (79-100); MONO # 0.7 x10^3/uL (0.0-1.1); MONO % 10 % (0-9); NEUT # 5.1 x10^3uL (1.8-7.7); NEUT % 72 % (31-73); PLATELET COUNT 243 x10^3/uL (140-400); RED BLOOD COUNT 4.24 x10^6/uL (3.50-5.40); RED CELL DISTRIBUTION WIDTH 12.5 % (11.5-14.5); WHITE BLOOD COUNT 7.1 x10^3/uL (4.0-11.0)
[2018-08-13 08:03] LABS: ALBUMIN 3.1 g/dL (3.4-5.0); ALBUMIN/GLOBULIN RATIO 0.9 (1.0-1.7); ALK PHOS 78 U/L (46-116); ALT (SGPT) 41 U/L (14-59); ANION GAP 7 (6-14); AST (SGOT) 23 U/L (15-37); BLOOD UREA NITROGEN 11 mg/dL (7-20); BUN/CREATININE RATIO 18 (6-20); CALCIUM 9.2 mg/dL (8.5-10.1); CARBON DIOXIDE 28 mmol/L (21-32); CHLORIDE 99 mmol/L (98-107); CREATININE 0.6 mg/dL (0.6-1.0); GFR 98.8; GLUCOSE 95 mg/dL (70-99); POTASSIUM 3.9 mmol/L (3.5-5.1); SODIUM 134 mmol/L (136-145); TOTAL BILIRUBIN 0.3 mg/dL (0.2-1.0); TOTAL PROTEIN 6.5 g/dL (6.4-8.2)
[2018-08-13 08:19] LABS: VAL ACID 64 mcg/mL (50-100)
[2018-08-13] MEDS: clonazePAM 0.5 MG TABLET PO PRN (14:33)
[2018-08-13 16:56] VITALS: BP 106/66
--- NOTE | 2018-08-13 17:20 | RAD ---
CHEST PA LATERAL History: COUGH, ORTHOPNEA Comparison: August 11, 2018 Findings: 2 views of the chest are submitted. There is no infiltrate, pneumothorax, or effusion. The cardiac silhouette is within normal limits in size. Impression: 1. No acute radiographic abnormality is identified. Electronically signed by: Zaid Griffin MD (08/13/2018 5:17 PM) [id number]
[2018-08-13] MEDS: PATCH REMOVAL. MC SCH ×2 (19:17)
[2018-08-13] MEDS: DIVALPROEX ER 250 MG TAB.ER.24H. PO SCH (19:23)
[2018-08-13] MEDS: MELATONIN 3 MG TABLET PO SCH (19:23)
[2018-08-13] MEDS: risperiDONE 0.25 MG TABLET. PO SCH (19:23)
[2018-08-13] MEDS: traZODone 50 MG TABLET. PO SCH (19:24)
[2018-08-13] MEDS: MIRTAZAPINE 7.5 MG TABLET. PO SCH (19:24)
--- NOTE | 2018-08-13 21:16 | PN ---
DATE: 08/12/2018 PSYCHIATRIC PROGRESS NOTE This late entry 08/12/2018 covers elements not covered in my initial note. SUBJECTIVE: I met with the patient at some length in her room. The patient slept 7-1/2 hours previous night. Per nursing report, she remains hyperverbal, attention seeking, writing copious notes about her medications, sometimes repetitively even as I met with her in her room. She forgets she has asked those question, goes back to the nursing staff and to myself, asking same thing repeatedly. She remains somewhat hypomanic, but perhaps a little better than before. Slept 7-1/2 hours. REVIEW OF SYSTEMS: Positive for upper respiratory tract infection symptoms. Defer to Dr. Alcantara. No CV, , GI, eye system symptoms on review. MENTAL STATUS EXAM: Reasonably oriented. Speech is coherent, abstraction fair, computation impaired, language function intact, attention span short. Mood and affect remain somewhat hypomanic. No active suicidal or homicidal ideation. LABORATORY DATA: Reviewed. IMPRESSION: Bipolar 1 disorder, manic, in partial remission, anxiety disorder, unspecified. PLAN: Continue current psychotropics. She slept much better previous night as compared to the night before when she slept just half an hour. Remeron 7.5 mg at bedtime was helpful with this. We will maintain the Depakote, Risperdal, melatonin for now along with Klonopin. MAN Edward MELENDEZ MD DR: ROSALIE/regan JOB#: [id number] / [id number]
--- NOTE | 2018-08-13 22:49 | PDOC ---
Exam Note: Miah Note: Please also refer to the separate dictated note~for this date of service dictated separately.~Patient seen individually. Discussed the patient with Nursing staff reviewed the chart.~Reviewed interim history and current functioning. Reviewed vital signs,~Labs/ Radiology~and current medications noted below. Continue current treatment with the changes noted in the dictated addendum note Assessment: Vital Signs: Vital Signs Date Time Temp Pulse Resp B/P (MAP) Pulse Ox O2 Delivery O2 Flow Rate FiO2 08/13/18 16:56 98.1 80 20 106/66 (79) 99 Room Air I&O Intake and Output 08/13/18 07:00 Intake Total 1080 ml Balance 1080 ml Intake Oral 1080 ml # Voids 1 Labs: Laboratory Tests Test 08/13/18 07:36 08/13/18 08:00 White Blood Count 7.1 x10^3/uL (4.0-11.0) Red Blood Count 4.24 x10^6/uL (3.50-5.40) Hemoglobin 13.6 g/dL (12.0-15.5) Hematocrit 40.1 % (36.0-47.0) Mean Corpuscular Volume 95 fL (79-100) Mean Corpuscular Hemoglobin 32 pg (25-35) Mean Corpuscular Hemoglobin Concent 34 g/dL (31-37) Red Cell Distribution Width 12.5 % (11.5-14.5) Platelet Count 243 x10^3/uL (140-400) Neutrophils (%) (Auto) 72 % (31-73) Lymphocytes (%) (Auto) 15 % (24-48) L Monocytes (%) (Auto) 10 % (0-9) H Eosinophils (%) (Auto) 3 % (0-3) Basophils (%) (Auto) 1 % (0-3) Neutrophils # (Auto) 5.1 x10^3uL (1.8-7.7) Lymphocytes # (Auto) 1.0 x10^3/uL (1.0-4.8) Monocytes # (Auto) 0.7 x10^3/uL (0.0-1.1) Eosinophils # (Auto) 0.2 x10^3/uL (0.0-0.7) Basophils # (Auto) 0.0 x10^3/uL (0.0-0.2) Sodium Level 134 mmol/L (136-145) L Potassium Level 3.9 mmol/L (3.5-5.1) Chloride Level 99 mmol/L (98-107) Carbon Dioxide Level 28 mmol/L (21-32) Anion Gap 7 (6-14) Blood Urea Nitrogen 11 mg/dL (7-20) Creatinine 0.6 mg/dL (0.6-1.0) Estimated GFR (Cockcroft-Gault) 98.8 BUN/Creatinine Ratio 18 (6-20) Glucose Level 95 mg/dL (70-99) Calcium Level 9.2 mg/dL (8.5-10.1) Total Bilirubin 0.3 mg/dL (0.2-1.0) Aspartate Amino Transferase (AST) 23 U/L (15-37) Alanine Aminotransferase (ALT) 41 U/L (14-59) Alkaline Phosphatase 78 U/L (46-116) Total Protein 6.5 g/dL (6.4-8.2) Albumin 3.1 g/dL (3.4-5.0) L Albumin/Globulin Ratio 0.9 (1.0-1.7) L Valproic Acid Level 64 mcg/mL (50-100) Valproic Acid Last Dose Date 08/12/18 Valproic Acid Last Dose Time 2100 [id number]-Type Natriuretic Peptide 120 pg/mL (0-124) Current Medications: Meds: Current Medications Acetaminophen (Tylenol) 650 mg PRN Q6HRS PRN PO PAIN / TEMP Last administered on 08/11/18at 16:37; Start 08/06/18 at 02:15 Multi-Ingredient Ointment (Analgesic [place]) 1 yessenia PRN QID PRN TP MUSCLE PAIN Last administered on 08/07/18at 14:33; Start 08/06/18 at 02:15 Al Hydroxide/Mg Hydroxide (Mylanta Plus Xs) 15 ml PRN AFTMEALHC PRN PO DYSPEPSIA; Start 08/06/18 at 02:15 Magnesium Hydroxide (Milk Of Magnesia) 2,400 mg PRN QHS PRN PO CONSTIPATION; Start 08/06/18 at 02:15 Albuterol Sulfate (Ventolin Hfa Inhaler) 2 puff PRN Q4HRS PRN INH SHORTNESS OF BREATH; Start 08/06/18 at 09:45; Stop 08/06/18 at 11:04; Status DC Clonazepam (KlonoPIN) 0.25 mg PRN DAILY PRN PO ANXIETY Last administered on 14:33; Start 08/06/18 at 09:45 Vitamin D (Vitamin D3) 1,000 unit DAILY PO Last administered on 08/13/18 07: 46; Start 08/07/18 at 09:00 Lisinopril (Prinivil) 20 mg DAILY PO Last administered on 08/13/18 07:46; Start 08/06/18 at 10:00 Melatonin 9 mg QHS PO Last administered on 08/13/18 19:23; Start 08/06/18 at 21:00 Multivitamins/ Calcium (Thera-M Plus) 1 tab DAILY PO Last administered on 08/13 07:47; Start 08/07/18 at 09:00 Quetiapine Fumarate (SEROquel) 25 mg QHS PO Last administered on 08/06/18 20: 45; Start 08/06/18 at 10:00; Stop 08/07/18 at 07:23; Status DC Acetaminophen (Tylenol) 500 mg BID PO Last administered on 08/13/18 21:27; Start 08/06/18 at 21:00 Hydrochlorothiazide (Microzide) 12.5 mg DAILY PO Last administered on 09:42; Start 08/06/18 at 10:00; Stop 08/10/18 at 22:59; Status DC Albuterol Sulfate (Ventolin) 2.5 mg PRN Q4HRS PRN NEB SHORTNESS OF BREATH Last administered on 08/11/18 01:41; Start 08/06/18 at 11:00 Olanzapine (ZyPREXA ZYDIS) 2.5 mg PRN Q2HR PRN PO PSYCHOSIS Last administered on 08/10/18 04:55; Start 08/06/18 at 19:30 Divalproex Sodium (Depakote Er) 500 mg DAILY PO Last administered on 08/07/18 08:13; Start 08/07/18 at 08:00; Stop 08/07/18 at 19:16; Status DC Risperidone (RisperDAL) 0.25 mg DAILY PO Last administered on 11/8/18at 08:11; Start 08/07/18 at 09:00; Stop 08/07/18 at 19:16; Status DC Divalproex Sodium (Depakote Er) 500 mg QHS PO Last administered on 08/09/18 19:18; Start 08/08/18 at 18:45; Stop 08/10/18 at 18:19; Status DC Risperidone (RisperDAL) 0.25 mg QHS PO ; Start 08/08/18 at 21:00; Stop 08/08/18 at 21:00; Status DC Polyethylene Glycol (miraLAX) 17 gm PRN DAILY PRN PO CONSTIPATION; Start at 21:15 Glycerin (Sani-Supp Adult) 1 supp PRN DAILY PRN [place] constipation; Start at 21:15 Lidocaine (Lidoderm) 1 patch DAILY TD Last administered on 08/13/18at 07:48; Start 08/08/18 at 09:00 Miscellaneous (Lidoderm Patch Removal) 1 ea QHS MC Last administered on 19:17; Start 08/07/18 at 21:00 Risperidone (RisperDAL) 0.5 mg QHS PO Last administered on 08/09/18 19:18; Start 08/08/18 at 18:45; Stop 08/10/18 at 20:14; Status DC Trazodone HCl (Desyrel) 50 mg QHS PO Last administered on 08/13/18at 19:24; Start 08/08/18 at 21:00 Trazodone HCl (Desyrel) 50 mg PRN QHS PRN PO INSOMNIA Last administered on 07/17at 21:45; Start 08/08/18 at 16:45 Docusate Sodium (Colace) 100 mg BID PO Last administered on 08/13/18 19:23; Start 08/08/18 at 18:45 Throat Lozenges (Cepacol Sore Throat Lozenge) 1 doretha PRN Q2HR PRN PO SORE THROAT Last administered on 08/11/18 06:21; Start 08/09/18 at 17:45 Sodium Chloride 1,000 ml @ 500 mls/hr 1X ONCE IV Last administered on at 17:33; Start 08/10/18 at 16:30; Stop 08/10/18 at 18:29; Status DC Divalproex Sodium (Depakote Er) 750 mg QHS PO Last administered on 08/13/18 19:23; Start 08/10/18 at 21:00 Risperidone (RisperDAL) 0.25 mg QHS PO Last administered on 08/10/18at 20:52; Start 08/10/18 at 21:00; Stop 08/11/18 at 14:57; Status DC Lidocaine (Lidoderm) 1 patch DAILY TD ; Start 08/11/18 at 09:00 Miscellaneous (Lidoderm Patch Removal) 1 ea QHS MC Last administered on 19:17; Start 08/10/18 at 21:00 Sodium Chloride 1,000 ml @ 150 mls/hr Q6H40M IV Last administered on 23:18; Start 08/10/18 at 23:00; Stop 08/11/18 at 05:40; Status DC Guaifenesin (Mucinex Er) 600 mg BID PO Last administered on 08/13/18 19:24; Start 08/11/18 at 21:00; Stop 08/18/18 at 20:59 Risperidone (RisperDAL) 0.75 mg QHS PO Last administered on 08/13/18 19:23; Start 08/11/18 at 21:00 Mirtazapine (Remeron) 7.5 mg QHS PO Last administered on 08/13/18 19:24; Start 08/11/18 at 21:00 Active Scripts Active Reported Centrum Adults Tablet (Multivitamin/Iron/Folic Acid) 1 Each Tablet 1 Each PO DAILY Vitamin D (Cholecalciferol (Vitamin D3)) 1,000 Unit Capsule 1,000 Unit PO DAILY Proair Hfa Inhaler (Albuterol Sulfate) 8.5 Gm Hfa.aer.ad 2 Puff INH PRN Q4HRS PRN Tylenol (Acetaminophen) 325 Mg Tablet 500 Mg PO BID Clonazepam 0.5 Mg Tablet 0.25 Mg PO PRN DAILY PRN Melatonin 3 Mg Tablet 10 Mg PO QHS Seroquel (Quetiapine Fumarate) 25 Mg Tablet 25 Mg PO QHS Lisinopril-Hctz 20-12.5 Mg Tab (Lisinopril/Hydrochlorothiazide) 1 Each Tablet 1 Tab PO DAILY I have reviewed the current psychotropics carefully including drug interactions. Risk benefit ratio favors no change other than as noted in my dictated progress note. Diagnosis: Problems: (1) Anxiety disorder (2) Bipolar affective, mixed, sev w/ psych (3) Impulse control disorder JERMAINE MELENDEZ MD Aug 13, 2018 22:49
[2018-08-14 00:33] VITALS: BP 130/83
[2018-08-14 06:06] VITALS: BP 115/74
[2018-08-14] MEDS: LIDOCAINE (700MG/PATCH) PATCH. TD SCH ×2 (09:00→09:44)
[2018-08-14] MEDS: CHOLECALCIFEROL (VITAMIN D3) 1,000 UNIT TABLET PO SCH (09:42)
[2018-08-14] MEDS: DOCUSATE SODIUM 100 MG CAPSULE PO SCH ×2 (09:42→19:27)
[2018-08-14] MEDS: MULTIVITAMIN with MINERAL TABLET. PO SCH (09:42)
[2018-08-14] MEDS: ACETAMINOPHEN 325 MG TABLET PO SCH ×2 (09:43→19:32)
[2018-08-14] MEDS: LISINOPRIL 20 MG TABLET PO SCH (09:44)
[2018-08-14] MEDS: BENZOCAINE/MENTHOL LOZNGE 18'S BOX. PO PRN ×2 (10:50→20:01)
[2018-08-14] MEDS ORDERED: risperiDONE 0.5 MG TABLET. PO SCH (11:15)
[2018-08-14 16:09] VITALS: BP 123/80
[2018-08-14] MEDS: MIRTAZAPINE 7.5 MG TABLET. PO SCH (19:26)
[2018-08-14] MEDS: PATCH REMOVAL. MC SCH (19:26)
[2018-08-14] MEDS: DIVALPROEX ER 250 MG TAB.ER.24H. PO SCH (19:27)
[2018-08-14] MEDS: traZODone 50 MG TABLET. PO SCH (19:27)
[2018-08-14] MEDS: risperiDONE 0.5 MG TABLET. PO SCH (19:27)
[2018-08-14] MEDS: MELATONIN 3 MG TABLET PO SCH (19:27)
--- NOTE | 2018-08-14 23:02 | PDOC ---
Exam Note: Miah Note: Please also refer to the separate dictated note~for this date of service dictated separately.~Patient seen individually. Discussed the patient with Nursing staff reviewed the chart.~Reviewed interim history and current functioning. Reviewed vital signs,~Labs/ Radiology~and current medications noted below. Continue current treatment with the changes noted in the dictated addendum note Assessment: Vital Signs: Vital Signs Date Time Temp Pulse Resp B/P (MAP) Pulse Ox O2 Delivery O2 Flow Rate FiO2 08/14/18 16:09 98.5 86 20 123/80 (94) 97 Room Air I&O Intake and Output 08/14/18 07:00 Intake Total 1280 ml Balance 1280 ml Intake Oral 1280 ml # Voids 1 Current Medications: Meds: Current Medications Acetaminophen (Tylenol) 650 mg PRN Q6HRS PRN PO PAIN / TEMP Last administered on 08/11/18 16:37; Start 08/06/18 at 02:15 Multi-Ingredient Ointment (Analgesic [place]) 1 yessenia PRN QID PRN TP MUSCLE PAIN Last administered on 08/07/18at 14:33; Start 08/06/18 at 02:15 Al Hydroxide/Mg Hydroxide (Mylanta Plus Xs) 15 ml PRN AFTMEALHC PRN PO DYSPEPSIA; Start 08/06/18 at 02:15 Magnesium Hydroxide (Milk Of Magnesia) 2,400 mg PRN QHS PRN PO CONSTIPATION; Start 08/06/18 at 02:15 Albuterol Sulfate (Ventolin Hfa Inhaler) 2 puff PRN Q4HRS PRN INH SHORTNESS OF BREATH; Start 08/06/18 at 09:45; Stop 08/06/18 at 11:04; Status DC Clonazepam (KlonoPIN) 0.25 mg PRN DAILY PRN PO ANXIETY Last administered on 14:33; Start 08/06/18 at 09:45 Vitamin D (Vitamin D3) 1,000 unit DAILY PO Last administered on 08/14/18 09: 42; Start 08/07/18 at 09:00 Lisinopril (Prinivil) 20 mg DAILY PO Last administered on 08/14/18 09:44; Start 08/06/18 at 10:00 Melatonin 9 mg QHS PO Last administered on 11/15/18at 19:27; Start 08/06/18 at 21:00 Multivitamins/ Calcium (Thera-M Plus) 1 tab DAILY PO Last administered on 08/14at 09:42; Start 08/07/18 at 09:00 Quetiapine Fumarate (SEROquel) 25 mg QHS PO Last administered on 08/06/18at 20: 45; Start 08/06/18 at 10:00; Stop 08/07/18 at 07:23; Status DC Acetaminophen (Tylenol) 500 mg BID PO Last administered on 08/14/18at 19:32; Start 08/06/18 at 21:00 Hydrochlorothiazide (Microzide) 12.5 mg DAILY PO Last administered on at 09:42; Start 08/06/18 at 10:00; Stop 08/10/18 at 22:59; Status DC Albuterol Sulfate (Ventolin) 2.5 mg PRN Q4HRS PRN NEB SHORTNESS OF BREATH Last administered on 08/11/18at 01:41; Start 08/06/18 at 11:00 Olanzapine (ZyPREXA ZYDIS) 2.5 mg PRN Q2HR PRN PO PSYCHOSIS Last administered on 08/10/18at 04:55; Start 08/06/18 at 19:30 Divalproex Sodium (Depakote Er) 500 mg DAILY PO Last administered on 08/07/18at 08:13; Start 08/07/18 at 08:00; Stop 08/07/18 at 19:16; Status DC Risperidone (RisperDAL) 0.25 mg DAILY PO Last administered on 08/07/18at 08:11; Start 08/07/18 at 09:00; Stop 08/07/18 at 19:16; Status DC Divalproex Sodium (Depakote Er) 500 mg QHS PO Last administered on 08/09/18at 19:18; Start 08/08/18 at 18:45; Stop 08/10/18 at 18:19; Status DC Risperidone (RisperDAL) 0.25 mg QHS PO ; Start 08/08/18 at 21:00; Stop 08/08/18 at 21:00; Status DC Polyethylene Glycol (miraLAX) 17 gm PRN DAILY PRN PO CONSTIPATION; Start at 21:15 Glycerin (Sani-Supp Adult) 1 supp PRN DAILY PRN [place] constipation; Start at 21:15 Lidocaine (Lidoderm) 1 patch DAILY TD Last administered on 08/14/18at 09:44; Start 08/08/18 at 09:00 Miscellaneous (Lidoderm Patch Removal) 1 ea QHS MC Last administered on 19:26; Start 08/07/18 at 21:00 Risperidone (RisperDAL) 0.5 mg QHS PO Last administered on 08/09/18 19:18; Start 08/08/18 at 18:45; Stop 08/10/18 at 20:14; Status DC Trazodone HCl (Desyrel) 50 mg QHS PO Last administered on 08/14/18 19:27; Start 08/08/18 at 21:00 Trazodone HCl (Desyrel) 50 mg PRN QHS PRN PO INSOMNIA Last administered on 21:45; Start 08/08/18 at 16:45 Docusate Sodium (Colace) 100 mg BID PO Last administered on 08/14/18 19:27; Start 08/08/18 at 18:45 Throat Lozenges (Cepacol Sore Throat Lozenge) 1 doretha PRN Q2HR PRN PO SORE THROAT Last administered on 08/14/18at 20:01; Start 08/09/18 at 17:45 Sodium Chloride 1,000 ml @ 500 mls/hr 1X ONCE IV Last administered on 17:33; Start 08/10/18 at 16:30; Stop 08/10/18 at 18:29; Status DC Divalproex Sodium (Depakote Er) 750 mg QHS PO Last administered on 08/14/18 19:27; Start 08/10/18 at 21:00 Risperidone (RisperDAL) 0.25 mg QHS PO Last administered on 08/10/18at 20:52; Start 08/10/18 at 21:00; Stop 08/11/18 at 14:57; Status DC Lidocaine (Lidoderm) 1 patch DAILY TD ; Start 08/11/18 at 09:00; Stop at 14:43; Status DC Miscellaneous (Lidoderm Patch Removal) 1 ea QHS MC Last administered on 19:17; Start 08/10/18 at 21:00; Stop 08/14/18 at 14:44; Status DC Sodium Chloride 1,000 ml @ 150 mls/hr Q6H40M IV Last administered on at 23:18; Start 08/10/18 at 23:00; Stop 08/11/18 at 05:40; Status DC Guaifenesin (Mucinex Er) 600 mg BID PO Last administered on 08/14/18at 19:27; Start 08/11/18 at 21:00; Stop 08/18/18 at 20:59 Risperidone (RisperDAL) 0.75 mg QHS PO Last administered on 08/13/18 19:23; Start 08/11/18 at 21:00; Stop 08/14/18 at 10:53; Status DC Mirtazapine (Remeron) 7.5 mg QHS PO Last administered on 08/14/18 19:26; Start 08/11/18 at 21:00 Risperidone (RisperDAL) 0.5 mg QHS PO ; Start 08/14/18 at 11:15; Stop at 18:01; Status DC Risperidone (RisperDAL) 0.5 mg QHS PO Last administered on 08/14/18 19:27; Start 08/14/18 at 21:00 Active Scripts Active Reported Centrum Adults Tablet (Multivitamin/Iron/Folic Acid) 1 Each Tablet 1 Each PO DAILY Vitamin D (Cholecalciferol (Vitamin D3)) 1,000 Unit Capsule 1,000 Unit PO DAILY Proair Hfa Inhaler (Albuterol Sulfate) 8.5 Gm Hfa.aer.ad 2 Puff INH PRN Q4HRS PRN Tylenol (Acetaminophen) 325 Mg Tablet 500 Mg PO BID Clonazepam 0.5 Mg Tablet 0.25 Mg PO PRN DAILY PRN Melatonin 3 Mg Tablet 10 Mg PO QHS Seroquel (Quetiapine Fumarate) 25 Mg Tablet 25 Mg PO QHS Lisinopril-Hctz 20-12.5 Mg Tab (Lisinopril/Hydrochlorothiazide) 1 Each Tablet 1 Tab PO DAILY I have reviewed the current psychotropics carefully including drug interactions. Risk benefit ratio favors no change other than as noted in my dictated progress note. Diagnosis: Problems: (1) Anxiety disorder (2) Bipolar affective, mixed, sev w/ psych (3) Impulse control disorder JERMAINE MELENDEZ MD Aug 14, 2018 23:02
[2018-08-15 06:03] VITALS: BP 138/79
[2018-08-15] MEDS: DOCUSATE SODIUM 100 MG CAPSULE PO SCH ×2 (09:27→19:20)
[2018-08-15] MEDS: CHOLECALCIFEROL (VITAMIN D3) 1,000 UNIT TABLET PO SCH (09:27)
[2018-08-15] MEDS: ACETAMINOPHEN 325 MG TABLET PO SCH ×2 (09:28→19:20)
[2018-08-15] MEDS: MULTIVITAMIN with MINERAL TABLET. PO SCH (09:29)
[2018-08-15] MEDS: LISINOPRIL 20 MG TABLET PO SCH (09:29)
[2018-08-15] MEDS: LIDOCAINE (700MG/PATCH) PATCH. TD SCH (09:31)
[2018-08-15] MEDS: clonazePAM 0.5 MG TABLET PO PRN (13:08)
[2018-08-15 16:06] VITALS: BP 140/90
[2018-08-15] MEDS: DIVALPROEX ER 250 MG TAB.ER.24H. PO SCH (19:20)
[2018-08-15] MEDS: risperiDONE 0.5 MG TABLET. PO SCH (19:20)
[2018-08-15] MEDS: traZODone 50 MG TABLET. PO SCH (19:20)
[2018-08-15] MEDS: MELATONIN 3 MG TABLET PO SCH (19:20)
[2018-08-15] MEDS: MIRTAZAPINE 7.5 MG TABLET. PO SCH (19:20)
[2018-08-15] MEDS: PATCH REMOVAL. MC SCH (19:20)
--- NOTE | 2018-08-15 21:26 | PN ---
DATE: 08/13/2018 This is a late entry for 08/13/2018 covers elements not covered in my initial note. SUBJECTIVE: I met with the patient in the evening. The patient slept 5-3/4 hours previous night. She remains somewhat anxious, hypomanic, constantly requesting Mucinex, wanting to write something with persistent hypergraphia. She does have symptoms of URI, sore throat, will defer to Dr. Alcantara. Chest x-ray was done. Valproic acid level therapeutic at 64. AST and ALT unremarkable. REVIEW OF SYSTEMS: Positive for URI symptoms, tiredness. No CV, , GI, eye system symptoms on review. MENTAL STATUS EXAM: Oriented to herself and situation. Speech coherent, rapid at times. Abstraction fair, computation impaired, language function intact. Attention span short. She remains somewhat hypomanic. No suicidal or homicidal ideation. LABORATORY DATA: Reviewed as noted. IMPRESSION: Bipolar 1 disorder, manic with psychotic features, in partial remission; cognitive disorder, unspecified; attention span is very short, distractible, unable to sustain concentration enough to complete a train of thought, but despite this, she is improved from how she was. PLAN: No change from initial note. Continue Risperdal, Depakote at current dosage. Seroquel was stopped. MAN Edward MELENDEZ MD DR: ROSALIE/regan JOB#: [id number] / [id number]
--- NOTE | 2018-08-15 21:33 | PN ---
DATE: 08/14/2018 This is a late entry for 08/14/2018 covers elements not covered in my initial note. SUBJECTIVE: I met with the patient in the evening together with her and also in the morning at a treatment team meeting. attended the treatment team meeting as well. We had a lengthy discussion about the patient's diagnosis. CT head additionally shows some atrophy reflective of some cognitive deficits, but primary diagnosis does seem to be bipolar disorder at least from what information and observations we have had so far. I reviewed at length with her circumstances prompting admission, the physician reviewer for her insurance, but denied inpatient hospitalization because he felt the patient could go to intensive outpatient. was very clear that the intensive outpatient was not a practical option for the patient. There is no one to transport the patient. works long hours and the patient could not be left by herself given her jann, psychotic symptoms, which were quite significant at the time of admission. wanted me to make a notation in the chart clarifying this for later review and this note should document this. In preparation for transition to outpatient treatment, has made outpatient psychiatric followup with Dr. Chambers at [facility] in [place]. REVIEW OF SYSTEMS: Positive for URI symptoms. No CV, , GI, eye system symptoms on review. MENTAL STATUS EXAM: The patient is oriented to herself and situation. Speech still somewhat rapid, coherent, abstraction fair, computation impaired, language function intact. She slept 8-1/2 hours previous night, which is quite an improvement for her and reflective of positive response to treatment since she is having significant insomnia initially. Nevertheless, she still remains somewhat hypomanic. MENTAL STATUS EXAM: Oriented to herself and situation. Speech is somewhat coherent, rapid. Attention span short. Language function intact. No active suicidal or homicidal ideation. LABORATORY DATA: Reviewed. IMPRESSION: Bipolar 1 disorder, manic, in partial remission; anxiety disorder, unspecified; cognitive disorder, unspecified. PLAN: Continue Remeron 7.5 mg p.o. at bedtime, Risperdal is 0.75 mg p.o. at bedtime. Given the risk/benefit ratio and the fact that Depakote level is therapeutic, we will drop it down to 0.5 at bedtime despite her above symptoms. Rest unchanged from initial note. Possible transition home to outpatient treatment over the weekend or early next week. MAN Edward MELENDEZ MD DR: Isabel JOB#: [id number] / [id number]
[2018-08-15] MEDS: BENZOCAINE/MENTHOL LOZNGE 18'S BOX. PO PRN (23:39)
[2018-08-15] MEDS: ACETAMINOPHEN 325 MG TABLET PO PRN (23:39)
[2018-08-15] MEDS: BENZONATATE 100 MG CAPSULE. PO SCH (23:39)
--- NOTE | 2018-08-16 01:51 | PN ---
DATE: 08/15/2018 SUBJECTIVE: The patient was seen today, met with the staff, chart reviewed and also covering for Dr. Franco. The patient continues to be anxious, nervous and also fearful. She is afraid somebody might walking. The patient is mainly having difficulty with short-term memory, history of functioning high level of anxiety. OBSERVATION: VITAL SIGNS: Temperature 98.4, blood pressure 138/79, pulse 88, respirations 24, O2 sat 99%. Slept about 6 hours last night. MEDICATIONS: Reviewed. Currently on Risperdal 0.5 mg at night, mirtazapine 7.5 mg at night, Depakote 750 mg at night, trazodone 50 mg at night and also p.r.n. for sleep, melatonin 9 mg at night. The patient is not having any other medical issues. The patient is able to walk. ASSESSMENT: 1. Bipolar disorder type 1, manic versus mixed with psychotic features. 2. Anxiety disorder. 3. Impulse control disorder, unspecified. PLAN: The patient will continue on these medications. Current discharge will be discussed in the next staffing with the , is able to take care of her needs. ANA PEARCE MD DR: GLADYS/regan JOB#: [id number] / [id number]
[2018-08-16 05:35] VITALS: BP 142/80
[2018-08-16] MEDS: LIDOCAINE (700MG/PATCH) PATCH. TD SCH ×2 (09:00→09:19)
[2018-08-16] MEDS: BENZONATATE 100 MG CAPSULE. PO SCH ×3 (09:16→19:28)
[2018-08-16] MEDS: DOCUSATE SODIUM 100 MG CAPSULE PO SCH ×2 (09:16→19:28)
[2018-08-16] MEDS: LISINOPRIL 20 MG TABLET PO SCH (09:16)
[2018-08-16] MEDS: MULTIVITAMIN with MINERAL TABLET. PO SCH (09:16)
[2018-08-16] MEDS: ACETAMINOPHEN 325 MG TABLET PO SCH (09:17)
[2018-08-16] MEDS: CHOLECALCIFEROL (VITAMIN D3) 1,000 UNIT TABLET PO SCH (09:19)
[2018-08-16 15:34] VITALS: BP 138/88
[2018-08-16] MEDS: traZODone 50 MG TABLET. PO SCH (19:28)
[2018-08-16] MEDS: ACETAMINOPHEN 325 MG TABLET PO PRN (19:28)
[2018-08-16] MEDS: MIRTAZAPINE 7.5 MG TABLET. PO SCH (19:28)
[2018-08-16] MEDS: MELATONIN 3 MG TABLET PO SCH (19:28)
[2018-08-16] MEDS: DIVALPROEX ER 250 MG TAB.ER.24H. PO SCH (19:28)
[2018-08-16] MEDS: risperiDONE 0.5 MG TABLET. PO SCH (19:28)
[2018-08-16] MEDS: PATCH REMOVAL. MC SCH (19:30)
[2018-08-16] MEDS: ACETAMINOPHEN 500 MG TABLET PO SCH (19:31)
--- NOTE | 2018-08-16 20:23 | PN ---
DATE: 08/16/2018 SUBJECTIVE: The patient was seen today, met with the staff, chart reviewed. The patient is attention seeking, repetitive, obsessive compulsive, wanting to see the doctor everyday and having multiple physical complaints. The patient is still anxious, restless, and talkative. The patient at times reasonable. The patient is able to comprehend the surroundings fairly well. The patient sometimes becomes very defensive angry, agitated. The patient has fairly good long-term memory and also she is able to keep up with the current events. Her memory fluctuates a lot. OBSERVATION: VITAL SIGNS: Temperature 98, blood pressure 142/80, pulse 90, respiration 20, and O2 sat 96%, slept about 5 hours last night. CURRENT MEDICATIONS: Include Risperdal 0.5 mg daily, mirtazapine 7.5 mg at night, Depakote 750 mg at night, trazodone 50 mg at night, and melatonin 9 mg at night. The patient is able to walk. No falls. ASSESSMENT: 1. Bipolar disorder, type 1, jann versus mixed state with psychotic features. 2. Anxiety disorder. 3. Impulse control disorder, unspecified. PLAN: The patient continued to show improvement. She is fine for discharge on 08/18/2018. RANDY WEINER MD DR: GLADYS/regan JOB#: [id number] / [id number]
[2018-08-17] MEDS: ACETAMINOPHEN 325 MG TABLET PO PRN (04:21)
[2018-08-17 05:32] VITALS: BP 119/78
--- NOTE | 2018-08-17 09:10 | RAD ---
CLINICAL HISTORY: congestion COMPARISON: None available. TECHNIQUE: CT of the facial bones was performed without IV contrast. Axial coronal and sagittal reformatted images were generated. FINDINGS: No definite fracture is noted of the facial bones. There is patchy opacification of the maxillary sinus with associated air-fluid levels. There is also patchy opacification of the ethmoid air cells. Associated maxillary wall thickening and remodeling is seen. No evidence of air-fluid levels. The mastoids are unremarkable. The globes, extraocular muscles, optic nerves and retrobulbar fat are normal. Visualized upper aerodigestive tract is normal. Mandible and bilateral temporomandibular joints are normal. IMPRESSION: 1. Patchy maxillary sinus and ethmoid air cell opacification with air-fluid levels and associated bony changes may be seen with acute on chronic sinusitis. 2. No evidence for acute facial bone fracture. Electronically signed by: Ridge Brand MD (08/17/2018 9:07 AM) [facility]
[2018-08-17] MEDS: DOCUSATE SODIUM 100 MG CAPSULE PO SCH ×2 (09:35→20:19)
[2018-08-17] MEDS: LIDOCAINE (700MG/PATCH) PATCH. TD SCH (09:36)
[2018-08-17] MEDS: LISINOPRIL 20 MG TABLET PO SCH (09:36)
[2018-08-17] MEDS: CHOLECALCIFEROL (VITAMIN D3) 1,000 UNIT TABLET PO SCH (09:36)
[2018-08-17] MEDS: BENZONATATE 100 MG CAPSULE. PO SCH ×3 (09:36→20:19)
[2018-08-17] MEDS: METHYL SALICYLATE/MENTHOL TOPICAL OINTMENT 29GM TUBE. TP PRN (09:38)
[2018-08-17] MEDS: ACETAMINOPHEN 500 MG TABLET PO SCH ×2 (09:46→20:19)
[2018-08-17] MEDS: MULTIVITAMIN with MINERAL TABLET. PO SCH (09:46)
[2018-08-17] MEDS: AMOXICILLIN/K CLAV 875/125MG TABLET. PO SCH ×2 (12:00→20:19)
[2018-08-17 17:11] VITALS: BP 107/71
--- NOTE | 2018-08-17 17:48 | DS ---
DATE OF DISCHARGE: 08/17/2018 FINAL DIAGNOSES: AXIS I: 1. Bipolar disorder type 1, manic with psychotic features. 2. Anxiety disorder, unspecified. 3. Impulse control disorder, unspecified. 4. Cognitive disorder, unspecified. AXIS II: None. AXIS III: Chronic obstructive pulmonary disease, hypertension, hyponatremia, osteoarthritis, chronic pain, hypercholesterolemia, spinal stenosis, asthma, chronic venous insufficiency. REASON FOR ADMISSION: This 72-year-old female who was admitted to [facility] from [facility] Room where she presented with the family because of manic behaviors and psychosis. The patient apparently has been having this problem for quite some time. Apparently, she failed outpatient psychiatric interventions. HISTORY OF PRESENT ILLNESS: She has a long history of depression, panic attacks, anxiety, ADHD and also significant mood swings and periods of severe depression. Also, exhibited variation in her sleep and appetite. She is also very obsessive. She is a perfectionist, but she is not able to keep up with the chores at home. Left whole house disorganized. HOSPITAL COURSE: The patient had a physical exam, routine lab work including CBC, chem profile and urinalysis. The patient's labs have been in normal range except for sodium of ____, hemoglobin A1c 5.6, AST 62 and also LDL 113, HDL 54. The patient was involved in the program including individual therapy, group therapy and milieu therapy. The patient was continued on her medications including Risperdal 0.5 mg at night, mirtazapine 7.5 mg at night, Depakote 750 mg at night. She is also on lisinopril 20 mg daily. She is also on p.r.n. Zyprexa 2.5 mg. q. 2 hours p.r.n. The patient apparently did fairly well during her stay here. She is not present with any major problems except being very anxious, nervous and tearful at times, and also some paranoid ideation. AFTERCARE PLAN: The patient will be returning home and she will continue on the current medications. Also, continue to see her primary care doctor and also psychiatrist. ANA PEARCE MD DR: GLADYS/regan JOB#: [id number] / [id number]
[2018-08-17] MEDS: traZODone 50 MG TABLET. PO SCH (20:19)
[2018-08-17] MEDS: risperiDONE 0.5 MG TABLET. PO SCH (20:19)
[2018-08-17] MEDS: MELATONIN 3 MG TABLET PO SCH (20:19)
[2018-08-17] MEDS: DIVALPROEX ER 250 MG TAB.ER.24H. PO SCH (20:19)
[2018-08-17] MEDS: MIRTAZAPINE 7.5 MG TABLET. PO SCH (20:19)
[2018-08-17] MEDS: LACTOBACILLUS RHAMNOSUS GG 1 CAPSULE. PO SCH (20:20)
[2018-08-17] MEDS: PATCH REMOVAL. MC SCH (20:20)
[2018-08-17] MEDS: BENZOCAINE/MENTHOL LOZNGE 18'S BOX. PO PRN (20:36)
[2018-08-18] MEDS ORDERED: BENZ1LOZ48 MM (03:01)
[2018-08-18] MEDS ORDERED: ACET325T21 PO (03:01)
[2018-08-18] MEDS ORDERED: DIVA250T PO (03:02)
[2018-08-18] MEDS ORDERED: DOCU-109 PO (03:03)
[2018-08-18] MEDS ORDERED: LISI-334 PO (03:04)
[2018-08-18] MEDS ORDERED: LIDO700A39 TP (03:04)
[2018-08-18] MEDS ORDERED: GLYC1SUP RC (03:04)
[2018-08-18] MEDS ORDERED: MAG355OR17 PO (03:05)
[2018-08-18] MEDS ORDERED: MAGN2400 PO (03:05)
[2018-08-18] MEDS ORDERED: MELA3TAB2 PO (03:06)
[2018-08-18] MEDS ORDERED: METH29OI TP (03:07)
[2018-08-18] MEDS ORDERED: MIRT15TA PO (03:07)
[2018-08-18] MEDS ORDERED: OLAN5TAB5 PO (03:08)
[2018-08-18] MEDS ORDERED: POLY17PO5 PO (03:08)
[2018-08-18] MEDS ORDERED: GUAI-108 PO (03:09)
[2018-08-18] MEDS ORDERED: RISP0.5T24 PO (03:10)
[2018-08-18] MEDS ORDERED: TRAZ-85 PO ×2 (03:10→03:11)
[2018-08-18] MEDS ORDERED: GUAI600T47 PO (03:10)
[2018-08-18] MEDS ORDERED: AMOX1TAB61 PO (03:11)
[2018-08-18 06:33] VITALS: BP 109/72
[2018-08-18] MEDS: AMOXICILLIN/K CLAV 875/125MG TABLET. PO SCH (09:26)
[2018-08-18] MEDS: LIDOCAINE (700MG/PATCH) PATCH. TD SCH (09:27)
[2018-08-18] MEDS: LACTOBACILLUS RHAMNOSUS GG 1 CAPSULE. PO SCH (09:27)
[2018-08-18] MEDS: ACETAMINOPHEN 500 MG TABLET PO SCH (09:27)
[2018-08-18] MEDS: DOCUSATE SODIUM 100 MG CAPSULE PO SCH (09:27)
[2018-08-18] MEDS: MULTIVITAMIN with MINERAL TABLET. PO SCH (09:27)
[2018-08-18] MEDS: CHOLECALCIFEROL (VITAMIN D3) 1,000 UNIT TABLET PO SCH (09:27)
[2018-08-18] MEDS: BENZONATATE 100 MG CAPSULE. PO SCH (09:27)
[2018-08-18] MEDS: BENZOCAINE/MENTHOL LOZNGE 18'S BOX. PO PRN (09:31)
== END 2018-08-18 10:59 | disposition home or self-care (01) | DRG 885 ==
LOC: GEROPSY 01:25
PROVIDERS: ADMIT Psychiatry & Neurology Psychiatry; ATTEND Psychiatry & Neurology Psychiatry
DX: F31.64 Bipolar disorder, current episode mixed, severe, with psychotic features (principal); E87.1 Hypo-osmolality and hyponatremia; F31.2 Bipolar disorder, current episode manic severe with psychotic features; F09 Unspecified mental disorder due to known physiological condition; E78.00 Pure hypercholesterolemia, unspecified; F41.0 Panic disorder [episodic paroxysmal anxiety]; F03.90 Unspecified dementia, unspecified severity, without behavioral disturbance, psychotic disturbance, mood disturbance, and anxiety; F42.9 Obsessive-compulsive disorder, unspecified; E86.0 Dehydration; F45.21 Hypochondriasis; F60.0 Paranoid personality disorder; F90.9 Attention-deficit hyperactivity disorder, unspecified type; F63.9 Impulse disorder, unspecified; G89.29 Other chronic pain; I10 Essential (primary) hypertension; M19.90 Unspecified osteoarthritis, unspecified site; J44.9 Chronic obstructive pulmonary disease, unspecified; I87.2 Venous insufficiency (chronic) (peripheral); M48.00 Spinal stenosis, site unspecified; Z79.899 Other long term (current) drug therapy
CPT/HCPCS: 36415; 70450; 70486; 71045; 71046; 80048; 80053; 80061; 80164; 81001; 82306; 82607; 83036; 83540; 83550; 83735; 83880; 84436; 84443; 84480; 85025; 86592; 87070; 87880; 93005; 94640; J7613; J7030